=== PATIENT | male | born 1950 | race Caucasian/White ===

== ENCOUNTER 2021-02-06 09:48 | Inpatient (IN) | payer MEDICARE, BC ==
[2021-02-06] MEDS ORDERED: Albuterol/Ipratropium 3.0-0.5 MG/3 ML Neb Soln NEB PRN (09:57)
[2021-02-06] MEDS ORDERED: Dextrose 5%-0.9% NaCl 1,000 ML IV SCH (10:00)
--- NOTE | 2021-02-06 10:02 | EDM.PDOC ---
ED HPI GENERAL MEDICAL PROBLEM - General Chief Complaint: Respiratory Problem Stated Complaint: [facility] Time Seen by Provider: 02/06/21 09:56 Source of Information: Reports: Patient, EMS History Limitations: Reports: No Limitations - History of Present Illness INITIAL COMMENTS - FREE TEXT/NARRATIVE: 70-year-old male whom lives alone,presents to the ED with chief complaint of generalized weakness and inability to walk. Loss of appetite with inability to eat. Symptoms have progressively worsened over the last 4 months. Associated dyspnea even with trying to drink or eat. Patient has chronic COPD but is not oxygen dependent. No recent changes to any of his mask medications. States he has a cough worse the last 3 to 4 days but unable to expectorate any mucus. Feels lightheaded and dizzy upon standing or walking. Usually gets around his home with a scooter. He will occasionally use a walker. No recent falls or injuries. Has great concerns about falling due to his weakness. He has appreciate increased swelling of his left lower extremity for several days. He has not had a shower for several weeks( 4 months?), due to weakness and fear of falling in the shower. Denies headache nausea or vomiting. States his bowels are working okay. Urine is quite dark and concentrated. He denies any symptoms of COVID-19 illness. He has not had any COVID-19 vaccinations. He feels he has lost perhaps 6 to 8 pounds of weight in the last 3 months. Of note patient is tachycardic on the monitor at 147/min. Tachypneic at 24 to 28/min with O2 sats of 99% room air. Apparently family has been trying to arrange for home health care without success. Onset: Unknown/Unsure (Has not felt well for several weeks. Worse the last 3 to 4 days.) Duration: Chronic, Getting Worse Location: Reports: Generalized (Generalized weakness with inability to walk.), Other (Increased dyspnea on minimal activity or even eating and drinking makes him have increased dyspnea.) Quality: Reports: Other (Primary problem is dyspnea. Patient has primary COPD. Not oxygen dependent.) Severity: Severe (Letter to severe) Improves with: Reports: Rest Worsens with: Reports: Other (Any walking or movement makes him dyspneic. He gets dyspnea even with trying to eat and drink water.) Context: Reports: Other (Significant COPD.) Associated Symptoms: Reports: Cough, Loss of Appetite (For several months but worse the last 4 days.), Malaise (Cannot cough up any sputum.), Shortness of Breath, Weakness (Generalized weakness and dizziness.). 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 He has not been have been able to prove this for [employer] pension in this regard. Genitourinary History: Reports: BPH Musculoskeletal History: Reports: Arthritis (Neck low back knees.) Social & Family History - Living Situation & Occupation Living situation: Reports: Single Occupation: Retired Social History Comment: Apparently he lives alone with his son checking in on him interittently. ED ROS GENERAL - Review of Systems Review Of Systems: See Below Constitutional: Reports: Malaise, Weakness, Fatigue, Decreased Appetite (Markedly decreased appetite even for fluids.), Weight Loss (Approximately 6 pounds but the patient is unsure as he is not stepped on a scale for over 3 months.). Denies: Fever, Chills HEENT: Reports: Other (Treatment and blurred vision. Uses glasses for reading.) Respiratory: Reports: Shortness of Breath, Cough. Denies: Wheezing, Pleuritic Chest Pain, Sputum, Hemoptysis (Nonproductive.) Cardiovascular: Reports: Dyspnea on Exertion (Particular of his left lower extremity.), Edema, Lightheadedness. Denies: Chest Pain, Blood Pressure Problem, Claudication, Orthopnea, Palpitations Endocrine: Reports: Fatigue GI/Abdominal: Denies: Abdominal Pain (He reports bowel function is normal.) : Reports: Other (Nocturia x1. Patient feels his urine is very dark and seb in color.) Musculoskeletal: Reports: Other (Neurolysed weakness particularly lower extremities.) Skin: Reports: Other (Scaling left lower extremity.) Neurological: Reports: Dizziness (Especially with standing.), Difficulty Walking (At present does not feel he can walk.), Weakness, Gait Disturbance. Denies: Confusion, Syncope, Tingling, Change in Speech Psychiatric: Reports: No Symptoms Hematologic/Lymphatic: Reports: No Symptoms Immunologic: Reports: No Symptoms ED EXAM, GENERAL - Physical Exam Exam: See Below Exam Limited By: No Limitations General Appearance: Alert, WD/WN, No Apparent Distress, Other (Patient appears unkept. He has a dirt on his abdominal wall chest wall and severe scaling to left lower extremity. Signs that he has not had a shower for a lengthy period of time. Temperature was 36.3 degrees and he does not feel warm. Heart rate 99 and sinus. Respiratory 24 to 28/min with O2 s) Eye Exam: Bilateral Eye: Normal Inspection (No blepharal pallor or scleral icterus.), PERRL Ears: Other (Ceruminosis both ears. Dirt within the auditory ear canals bilaterally.) Throat/Mouth: Other (Tongue is very dry and coated.) Head: Atraumatic, Normocephalic Neck: Normal Inspection, Supple, Non-Tender, Full Range of Motion. No: Carotid Bruit, Lymphadenopathy (L), Lymphadenopathy (R) Respiratory/Chest: Lungs Clear, Normal Breath Sounds, Respiratory Distress (Tachypnea at rest with maintained O2 sats on room air), Decreased Breath Sounds (Mildly decreased breath sounds to posterior lung mathis by 10%.). No: Rales, Rhonchi, Wheezing Cardiovascular: Regular Rate, Rhythm, No Edema, No Gallop, No JVD, No Murmur, No Rub. No: Normal Peripheral Pulses Peripheral Pulses: 2+: Carotid (L), Carotid (R), Posterior Tibial (L), Posterior Tibial (R), Dorsalis Pedis (L) GI/Abdominal: Normal Bowel Sounds, Soft, Non-Tender, No Organomegaly, No Mass, Pelvis Stable, Other (No surgical scars) (Male) Exam: No Hernia Back Exam: Normal Inspection, Full Range of Motion. No: CVA Tenderness (L), CVA Tenderness (R) Extremities: Pedal Edema (Left lower extremity up to the knee i.e. 4+ pitting.), Other (Severe scaling of the skin left lower extremity.). No: Increased Warmth, Mottled, Pallor, Redness Neurological: Alert, Oriented, CN II-XII Intact, Normal Cognition, No Motor/Sensory Deficits. No: Normal Gait (Not assessed.), Disoriented, Slow to Respond, Unresponsive, Memory Loss Recent Events, Abnormal Gait Psychiatric: Normal Affect, Normal Mood Skin Exam: Warm, Dry, Intact, Other (Note scaling left lower extremity. Dirt on his skin abdominal wall chest wall and groins compliant with not being able to shower for a lengthy period of time) #1 Interpretation EKG Date: 02/06/21 Time: 10:03 Rhythm: Other (Sinus rhythm or sinus tachycardia at 147/min inverted T waves leads II.) Rate (Beats/Min): 147 [place]: RAD-Right [place] Deviation (113 degrees) P-Wave: Present (Inverted in lead II. Consider lead placement abnormality) QRS: Other (Decreased voltage limb and precordial leads. Atypical right bundle branch block pattern. Q waves leads V1 V2 combined with old anteroseptal myocardial infarction. Q waves also noted in leads I and aVL compared with old lateral wall myocardial infarction.) ST-T: Other (Nonspecific T wave flattening in leads I and aVL V5 and V6. Consider metabolic abnormality) QT: Prolonged (Mildly prolonged) EKG Interpretation Comments: Abnormal ECG #2 Interpretation EKG Date: 02/06/21 Time: 13:37 Rhythm: Other (Junctional tachycardia) Rate (Beats/Min): 145 [place]: RAD-Right [place] Deviation (110 degrees) P-Wave: Variable (P waves appreciated before the QRS complex on the QRS complex and after the QRS complexes compared with junctional rhythm) QRS: Other (Q-wave V1 V2 with initial poor R wave progression consider old anteroseptal myocardial infarction. Q waves 1 and aVL compared with old lateral wall myocardial infarction. Decreased voltage both limb and precordial leads. Atypical right bundle branch block pattern with widened QRS in V2.) ST-T: Other QT: Prolonged (Markedly prolonged due to tachycardia.) EKG Interpretation Comments: Abnormal ECG Course - Vital Signs Last Recorded V/S: Last Vital Signs Temp 36.3 C 02/06/21 09:57 Pulse 147 H 02/06/21 14:43 Resp 24 H 02/06/21 09:57 BP 108/77 02/06/21 14:43 Pulse Ox 96 02/06/21 09:57 - Orders/Labs/Meds Orders: Active Orders 24 hr Category Date Time Status Cardiac Monitoring [RC] CONTINUOUS Care 02/06/21 14:22 Active EKG Documentation Completion [RC] STAT Care 02/06/21 13:33 Active Height and Weight [RC] DAILY Care 02/06/21 14:22 Active Intake and Output [RC] QSHIFT Care 02/06/21 14:22 Active Notify Provider Vital Signs [RC] ASDIRECTED Care 02/06/21 14:22 Active Oxygen Therapy [RC] PRN Care 02/06/21 14:22 Active Pulse Oximetry [RC] CONTINUOUS Care 02/06/21 14:22 Active RT Aerosol Therapy [RC] ASDIRECTED Care 02/06/21 09:57 Active Up With Assistance [RC] ASDIRECTED Care 02/06/21 14:22 Active VTE/DVT Education [RC] PER UNIT ROUTINE Care 02/06/21 14:22 Active Vital Signs [RC] Q4H Care 02/06/21 14:22 Active Consult to Case Management/Veterinary Medicine Scientist [CONS] Cons 02/06/21 14:22 Active Routine OT Evaluation and Treatment [CONS] Routine Cons 02/06/21 14:22 Active PT Evaluation and Treatment [CONS] Routine Cons 02/06/21 14:22 Active Respiratory Care Assess and Treatment [CONS] Routine Cons 02/06/21 14:22 Active Heart Healthy Diet [DIET] Diet 02/06/21 Dinner Active Chest 1V Frontal [CR] Stat Exams 02/06/21 09:59 Taken Echo Comp wo Cont [US] Routine Exams 02/06/21 14:26 Ordered BASIC METABOLIC PANEL,BMP [CHEM] DAILY Lab 02/07/21 06:00 Ordered BASIC METABOLIC PANEL,BMP [CHEM] DAILY Lab 02/08/21 06:00 Ordered BASIC METABOLIC PANEL,BMP [CHEM] DAILY Lab 02/09/21 06:00 Ordered BASIC METABOLIC PANEL,BMP [CHEM] DAILY Lab 02/10/21 06:00 Ordered BASIC METABOLIC PANEL,BMP [CHEM] DAILY Lab 02/11/21 06:00 Ordered CBC WITH AUTO DIFF [HEME] DAILY Lab 02/07/21 06:00 Ordered CBC WITH AUTO DIFF [HEME] DAILY Lab 02/08/21 06:00 Ordered CBC WITH AUTO DIFF [HEME] DAILY Lab 02/09/21 06:00 Ordered CBC WITH AUTO DIFF [HEME] DAILY Lab 02/10/21 06:00 Ordered MAGNESIUM [CHEM] DAILY Lab 02/07/21 06:00 Ordered MAGNESIUM [CHEM] DAILY Lab 02/08/21 06:00 Ordered MAGNESIUM [CHEM] DAILY Lab 02/09/21 06:00 Ordered MAGNESIUM [CHEM] DAILY Lab 02/10/21 06:00 Ordered MAGNESIUM [CHEM] DAILY Lab 02/11/21 06:00 Ordered PROCALCITONIN [REF] Stat Lab 02/06/21 10:08 Received URINALYSIS W/MICROSCOPIC [UA W/MICROSCOPIC] [URIN] Stat Lab 02/06/21 14:50 Results Acetaminophen [TylenoL] Med 02/06/21 14:22 Active 650 mg PO Q4H PRN Dextrose 5%-0.9% NaCl [Dextrose 5%-Normal Saline] 1,000 Med 02/06/21 10:00 Active ml IV ASDIRECTED Heparin Sodium Med 02/06/21 14:30 Active 5,000 units SUBCUT Q8H Ondansetron [Zofran ODT] Med 02/06/21 14:22 Active 4 mg PO Q6H PRN Ondansetron [Zofran] Med 02/06/21 14:22 Active 4 mg IV Q4H PRN Sodium Chloride 0.9% [Normal Saline] 100 ml Med 02/06/21 12:30 Active IV ASDIRECTED Resuscitation Status Routine Resus Stat 02/06/21 14:22 Ordered Medication Orders Acetaminophen (Acetaminophen 325 Mg Tab) 650 mg PO Q4H PRN PRN Reason: Pain (Mild 1-3)/fever Heparin Sodium (Porcine) (Heparin Sodium 5,000 Units/Ml Vial) 5,000 units SUBCUT Q8H [facility] Dextrose/Sodium Chloride (Dextrose 5%-Normal Saline) 1,000 mls @ 999 mls/hr IV ASDIRECTED [facility] Last Admin: 02/06/21 10:39 Dose: 999 mls/hr Documented by: JOHN Sodium Chloride (Normal Saline) 100 mls @ 60 mls/hr IV ASDIRECTED [facility] Last Admin: 02/06/21 12:41 Dose: 60 mls/hr Documented by: TERI Albumin Human 12.5 gm/ Premix 50 mls @ 50 mls/hr IV ONETIME ONE Stop: 02/06/21 17:29 Albumin Human 12.5 gm/ Premix 50 mls @ 50 mls/hr IV ONETIME ONE Stop: 02/06/21 17:29 Ondansetron HCl (Ondansetron 4 Mg Tab.Dis) 4 mg PO Q6H PRN PRN Reason: nausea, able to take PO Ondansetron HCl (Ondansetron 4 Mg/2 Ml Sdv) 4 mg IV Q4H PRN PRN Reason: Nausea/Vomiting Labs: Laboratory Tests 02/06/21 02/06/21 02/06/21 Range/Units 10:08 10:08 10:08 WBC 5.45 (4.23-9.07) K/mm3 RBC 4.19 L (4.63-6.08) M/mm3 Hgb 12.1 L (13.7-17.5) gm/dl Hct 42.5 (40.1-51.0) % MCV 101.4 H (79.0-92.2) fl MCH 28.9 (25.7-32.2) pg MCHC 28.5 L (32.2-35.5) g/dl RDW Std Deviation 50.8 H (35.1-43.9) fL Plt Count 126 L (163-337) K/mm3 MPV 11.9 (9.4-12.3) fl Neut % (Auto) 75.2 H (34.0-67.9) % Lymph % (Auto) 13.2 L (21.8-53.1) % Clay % (Auto) 9.9 (5.3-12.2) % Eos % (Auto) 1.1 (0.8-7.0) Baso % (Auto) 0.6 (0.1-1.2) % Neut # (Auto) 4.10 (1.78-5.38) K/mm3 Lymph # (Auto) 0.72 L (1.32-3.57) K/mm3 Clay # (Auto) 0.54 (0.30-0.82) K/mm3 Eos # (Auto) 0.06 (0.04-0.54) K/mm3 Baso # (Auto) 0.03 (0.01-0.08) K/mm3 Manual Slide Review Abnormal smear ESR (0-15) mm/hr PT 13.6 H (9.7-12.0) SECONDS INR 1.28 APTT (21.7-31.4) SECONDS D-Dimer, Quantitative (0.19-0.50) mg/L Sodium 143 (136-145) mEq/L Potassium 4.4 (3.5-5.1) mEq/L Chloride 103 (98-107) mEq/L Carbon Dioxide 37 H (21-32) mEq/L Anion Gap 7.4 (5-15) BUN 16 (7-18) mg/dL Creatinine 1.1 (0.7-1.3) mg/dL Est Cr Clr Drug Dosing TNP Estimated GFR (MDRD) > 60 (>60) mL/min BUN/Creatinine Ratio 14.5 (14-18) Glucose 120 H (70-99) mg/dL Calcium 7.9 L (8.5-10.1) mg/dL Magnesium 2.0 (1.8-2.4) mg/dL Total Bilirubin 0.7 (0.2-1.0) mg/dL AST 20 (15-37) U/L ALT 20 (16-63) U/L Alkaline Phosphatase 75 (46-116) U/L CK-MB (CK-2) (0-3.6) ng/ml Troponin I 0.349 H* (0.00-0.056) ng/mL C-Reactive Protein 1.7 H* (<1.0) mg/dL NT-Pro-B Natriuret Pep (0-125) pg/mL Total Protein 6.4 (6.4-8.2) g/dl Albumin 2.8 L (3.4-5.0) g/dl Globulin 3.6 gm/dL Albumin/Globulin Ratio 0.8 L (1-2) SARS-CoV-2 RNA (ANGELA) (NEGATIVE) 02/06/21 02/06/21 02/06/21 Range/Units 10:08 10:08 10:08 WBC (4.23-9.07) K/mm3 RBC (4.63-6.08) M/mm3 Hgb (13.7-17.5) gm/dl Hct (40.1-51.0) % MCV (79.0-92.2) fl MCH (25.7-32.2) pg MCHC (32.2-35.5) g/dl RDW Std Deviation (35.1-43.9) fL Plt Count (163-337) K/mm3 MPV (9.4-12.3) fl Neut % (Auto) (34.0-67.9) % Lymph % (Auto) (21.8-53.1) % Clay % (Auto) (5.3-12.2) % Eos % (Auto) (0.8-7.0) Baso % (Auto) (0.1-1.2) % Neut # (Auto) (1.78-5.38) K/mm3 Lymph # (Auto) (1.32-3.57) K/mm3 Clay # (Auto) (0.30-0.82) K/mm3 Eos # (Auto) (0.04-0.54) K/mm3 Baso # (Auto) (0.01-0.08) K/mm3 Manual Slide Review ESR 6 (0-15) mm/hr PT (9.7-12.0) SECONDS INR APTT 26.2 (21.7-31.4) SECONDS D-Dimer, Quantitative 8.27 H (0.19-0.50) mg/L Sodium (136-145) mEq/L Potassium (3.5-5.1) mEq/L Chloride (98-107) mEq/L Carbon Dioxide (21-32) mEq/L Anion Gap (5-15) BUN (7-18) mg/dL Creatinine (0.7-1.3) mg/dL Est Cr Clr Drug Dosing Estimated GFR (MDRD) (>60) mL/min BUN/Creatinine Ratio (14-18) Glucose (70-99) mg/dL Calcium (8.5-10.1) mg/dL Magnesium (1.8-2.4) mg/dL Total Bilirubin (0.2-1.0) mg/dL AST (15-37) U/L ALT (16-63) U/L Alkaline Phosphatase (46-116) U/L CK-MB (CK-2) (0-3.6) ng/ml Troponin I (0.00-0.056) ng/mL C-Reactive Protein (<1.0) mg/dL NT-Pro-B Natriuret Pep 8000 H (0-125) pg/mL Total Protein (6.4-8.2) g/dl Albumin (3.4-5.0) g/dl Globulin gm/dL Albumin/Globulin Ratio (1-2) SARS-CoV-2 RNA (ANGELA) (NEGATIVE) 02/06/21 02/06/21 Range/Units 10:08 10:09 WBC (4.23-9.07) K/mm3 RBC (4.63-6.08) M/mm3 Hgb (13.7-17.5) gm/dl Hct (40.1-51.0) % MCV (79.0-92.2) fl MCH (25.7-32.2) pg MCHC (32.2-35.5) g/dl RDW Std Deviation (35.1-43.9) fL Plt Count (163-337) K/mm3 MPV (9.4-12.3) fl Neut % (Auto) (34.0-67.9) % Lymph % (Auto) (21.8-53.1) % Clay % (Auto) (5.3-12.2) % Eos % (Auto) (0.8-7.0) Baso % (Auto) (0.1-1.2) % Neut # (Auto) (1.78-5.38) K/mm3 Lymph # (Auto) (1.32-3.57) K/mm3 Clay # (Auto) (0.30-0.82) K/mm3 Eos # (Auto) (0.04-0.54) K/mm3 Baso # (Auto) (0.01-0.08) K/mm3 Manual Slide Review ESR (0-15) mm/hr PT (9.7-12.0) SECONDS INR APTT (21.7-31.4) SECONDS D-Dimer, Quantitative (0.19-0.50) mg/L Sodium (136-145) mEq/L Potassium (3.5-5.1) mEq/L Chloride (98-107) mEq/L Carbon Dioxide (21-32) mEq/L Anion Gap (5-15) BUN (7-18) mg/dL Creatinine (0.7-1.3) mg/dL Est Cr Clr Drug Dosing Estimated GFR (MDRD) (>60) mL/min BUN/Creatinine Ratio (14-18) Glucose (70-99) mg/dL Calcium (8.5-10.1) mg/dL Magnesium (1.8-2.4) mg/dL Total Bilirubin (0.2-1.0) mg/dL AST (15-37) U/L ALT (16-63) U/L Alkaline Phosphatase (46-116) U/L CK-MB (CK-2) 2.4 (0-3.6) ng/ml Troponin I (0.00-0.056) ng/mL C-Reactive Protein (<1.0) mg/dL NT-Pro-B Natriuret Pep (0-125) pg/mL Total Protein (6.4-8.2) g/dl Albumin (3.4-5.0) g/dl Globulin gm/dL Albumin/Globulin Ratio (1-2) SARS-CoV-2 RNA (ANGELA) Negative (NEGATIVE) Meds: Medications Generic Name Dose Route Start Last Admin Trade Name Freq PRN Reason Stop Dose Admin Acetaminophen 650 mg 02/06/21 14:22 Acetaminophen 325 Mg Tab PO Q4H PRN Pain (Mild 1-3)/fever Heparin Sodium (Porcine) 5,000 units 02/06/21 14:30 Heparin Sodium 5,000 Units/Ml Vial SUBCUT Q8H TOMY Dextrose/Sodium Chloride 1,000 mls @ 999 mls/hr 02/06/21 10:00 02/06/21 10:39 Dextrose 5%-Normal Saline IV 999 mls/hr ASDIRECTED TOMY Administration Sodium Chloride 100 mls @ 60 mls/hr 02/06/21 12:30 02/06/21 12:41 Normal Saline IV 60 mls/hr ASDIRECTED TOMY Administration Albumin Human 12.5 gm/ Premix 50 mls @ 50 mls/hr 02/06/21 16:30 IV 02/06/21 17:29 ONETIME ONE Albumin Human 12.5 gm/ Premix 50 mls @ 50 mls/hr 02/06/21 16:30 IV 02/06/21 17:29 ONETIME ONE Ondansetron HCl 4 mg 02/06/21 14:22 Ondansetron 4 Mg Tab.Dis PO Q6H PRN nausea, able to take PO Ondansetron HCl 4 mg 02/06/21 14:22 Ondansetron 4 Mg/2 Ml Sdv IV Q4H PRN Nausea/Vomiting Discontinued Medications Generic Name Dose Route Start Last Admin Trade Name Freq PRN Reason Stop Dose Admin Albuterol/Ipratropium 3 ml 02/06/21 09:57 Albuterol/Ipratropium 3.0-0.5 Mg/3 Ml Neb Soln NEB Q4H PRN Shortness Of Breath/wheezing Diltiazem HCl 10 mg 02/06/21 13:35 02/06/21 13:54 Diltiazem 50 Mg/10 Ml Sdv IVPUSH 02/06/21 13:36 10 mg ONETIME ONE Administration Furosemide 40 mg 02/06/21 13:34 02/06/21 13:54 Furosemide 40 Mg/4 Ml Vial IVPUSH 02/06/21 13:35 40 mg NOW ONE Administration Albumin Human 12.5 gm/ Premix 50 mls @ 50 mls/hr 02/06/21 15:20 IV 02/06/21 16:19 Q1H ONE Iopamidol 100 ml 02/06/21 12:24 02/06/21 12:41 Iopamidol 755 Mg/Ml 100 Ml Bottle IVPUSH 02/06/21 12:25 100 ml ONETIME ONE Administration Levalbuterol HCl 1.25 mg 02/06/21 10:15 02/06/21 10:25 Levalbuterol Hcl 1.25 Mg/0.5 Ml Neb NEB 02/06/21 10:16 Not Given ONETIME ONE Levalbuterol HCl Confirm 02/06/21 10:17 02/06/21 10:24 Levalbuterol Hcl 1.25 Mg/3 Ml Neb Administered 02/06/21 10:18 1.25 mg Dose Administration 1.25 mg .ROUTE .STK-MED ONE Metoprolol Tartrate 5 mg 02/06/21 14:34 02/06/21 14:43 Metoprolol Tartrate 5 Mg/5 Ml Sdv IVPUSH 02/06/21 14:35 5 mg ONETIME ONE Administration Sodium Chloride 10 ml 02/06/21 12:24 02/06/21 12:41 Sodium Chloride 0.9% 10 Ml Syringe FLUSH 02/06/21 12:25 10 ml ONETIME ONE Administration - Radiology Interpretation Free Text/Narrative:: 70-year-old male presents to the ED with generalized weakness and decreased appetite inability to eat. History of COPD. Unclear what his home medications are. He presents with a history of not being able to shower for 4 months. Unable to care for himself. Lives alone. He has not oxygen dependent but carries a history of COPD. Apparently he does have a home nebulizer. No history of diabetes. Estimated 6 pound weight loss over the last 3 months but he does not have a scale to really assess his weight loss. Examination reveals him to be unkept with dirt in his skin abdomen and chest wall. Diffuse edema left lower extremity with scaling of the skin I think due to the edema. The right leg is not edematous raising concern for possible DVT in the lower lower extremity. He is tachycardic with a regular rhythm and I suspect sinus on the monitor and on his ECG with decreased voltage throughout the limb and precordial leads. IV will be D5NS. Routine labs including D-dimer assay. - Re-Assessments/Exams Free Text/Narrative Re-Assessment/Exam: 02/06/21 12:09 ECG does appear to reveal a sinus tachycardia versus possible ectopic atrial rhythm. Chest x-ray done portably reveals hyperinflated lung mathis with borderline cardiomegaly. There is an infiltrate right lower lobe compatible with pneumonia. There is a associated right-sided pleural effusion. With his history of significant weight loss and weakness concern for possible malignancy right lower lobe exist. Mediastinum appears normal. CT scan of the chest will be performed with IV contrast if his renal function is normal. 02/06/21 12:14 White count is normal at 5.45 with automated neutrophil count of 75.2%. Hemoglobin is slightly low at 12.1 with hematocrit of 42.5. MCV is elevated at 101.4. Platelet count is low at 126,000. Sed rate was 6. PT is 13.6 mildly elevated INR is elevated at 1.28. PTT is 26.2. D-dimer is markedly elevated at 8.27. Sodium 143 with a potassium of 4.4. Chloride 103 with a bicarb of 37 revealing the patient is retaining CO2. Anion gap is 7.4. BUN was 16 with a creatinine of 1.1 and a GFR greater than 60. Glucose is 120 calcium is 7.9 low compared with not eating. Magnesium was 2.0. Liver function is normal. Troponin I is elevated at 0.349 C-reactive protein elevated at 1.7 BNP is elevated at 8000. Total protein is 6.4 with an albumin fraction of 2.8. COVID-19 screen is negative. Patient will have a CT pulmonary angiogram performed to rule out PE. I will also confirm that this is a pneumonia infiltrate right lower lobe with associated pleural effusion due to heart failure. An ultrasound of his left lower extremity will also be ordered to rule out DVT. 02/06/21 13:19 Doppler ultrasound of the left lower extremity proved to be normal with no signs of DVT. CT examination of the chest has been completed. IV contrast was utilized. Pulmonary arteries are well-opacified no filling defects are seen to indicate pulmonary embolism. Thoracic aorta shows no aneurysm. Minimal atherosclerotic calcification is noted. No adenopathy is seen within the mediastinum or hilar regions. No pericardial thickening is seen. Heart is slightly enlarged. Visualized upper abdomen shows motion artifact without discrete abnormality. Lung window settings were reviewed which show diffuse and severe emphysematous changes. Small right-sided pleural effusion is seen. Minimal left-sided pleural effusion is also noted. There is areas of atelectasis adjacent to the pleural effusions. Bone window settings were reviewed which show mild scattered degenerative changes throughout the s pine. No acute osseous abnormalities appreciated. Of note no mention of infiltrate appreciated on chest x-ray in the right lower lobe. On my review of the CT he has a moderate right-sided pleural effusion. There is evidence of fluid surrounding vasculature right lower lobe which I think accounts for the infiltrate appreciated on chest x-ray. No mediastinal adenopathy appreciated. 02/06/21 13:35 Patient`s son is here now. He was able to answer some questions. Patient has a chronic low blood pressure usually 98 to 110 systolic. He has no history of heart arrhythmia. He remains in a regular rhythm at 145 bpm. No improvement with 1 L fluid challenge. O2 sats remain 100% on 2 L/min. I suspect he has underlying atrial fibrillation but unable to prove this at this time. I am going to try is 10 mg dose of diltiazem to see if it changes his heart rate or slows it enough to confirm that he is actually in atrial fibrillation versus SVT. He will receive Lasix 40 mg IV for congestive heart failure. He will require admission to the hospital. 02/06/21 14:07 Unable to clarify at this time whether the patient has had an [facility] or not. He denies any significant chest pain in the last week or so. His troponin came back elevated at 0.349. Repeat ECG does reveal evidence of a junctional tachycardia in the 145 range. Attempt to slow the rhythm with diltiazem 10 mg IV but with a drop in his blood pressure to 90/68 systolic. He states this is his normal. However he did nothing to control his heart rate. We will allow blood pressure recover and try low-dose beta-nena. I have discussed the case with on-call hospitalist and the patient tentatively will be admitted to the ICU. I have ordered a CK-MB fraction to see if there is any recent evidence of myocardial infarction. 02/06/21 14:34 Patient's blood pressure has returned back to 111/86. We will try him on Lopressor 5 mg IV for junctional tachycardia at 147/min at this time. Patient is going to require healthcare social worker consultation due to inability to care for himself as of late. [facility] but has not had any [facility]. He was hoping to obtain some home health. It appears that he may well need more than this at this time since he is not reportedly had a shower for 4 months? 02/06/21 15:26: Heart rate remains elevated at 141. Dropped only about 6 bpm with Lopressor 5 mg IV slowly over 5 minutes. Blood pressure did drop transiently down to 90/80. It is currently 95/80. Patient be transferred to the ICU at this time. CK-MB fraction is normal at 1.7. Repeat troponin remains the same at 0.349. Patient has voided large quantities of urine x3 and is feeling somewhat better in terms of breathing. Departure - Departure Time of Disposition: 15:38 Disposition: Admitted As Inpatient 64 Condition: Fair Clinical Impression: Adult failure to thrive, Hypoxia, Elevated troponin I measurement, Junctional tachycardia COPD (chronic obstructive pulmonary disease) Qualifiers: COPD type: emphysema Emphysema type: panlobular Qualified Code(s): J43.1 - Panlobular emphysema Congestive heart failure Qualifiers: Heart failure type: unspecified Heart failure chronicity: unspecified Qualified Code(s): I50.9 - Heart failure, unspecified - Discharge Information *PRESCRIPTION DRUG MONITORING PROGRAM REVIEWED*: Not Applicable *COPY OF PRESCRIPTION DRUG MONITORING REPORT IN PATIENT PIERO: Not Applicable Sepsis Event Note (ED) - Focused Exam Vital Signs: Vital Signs Temp Pulse Pulse Resp BP Pulse Ox Pulse Ox 02/06/21 09:57 36.3 C 148 H 99 24 H 107/86 99 96 - My Orders Last 24 Hours: My Active Orders 02/06/21 09:57 RT Aerosol Therapy [RC] ASDIRECTED 02/06/21 09:59 Chest 1V Frontal [CR] Stat 02/06/21 10:00 Dextrose 5%-0.9% NaCl [Dextrose 5%-Normal Saline] 1,000 ml IV ASDIRECTED 02/06/21 12:30 Sodium Chloride 0.9% [Normal Saline] 100 ml IV ASDIRECTED 02/06/21 13:33 EKG Documentation Completion [RC] STAT 02/06/21 14:50 URINALYSIS W/MICROSCOPIC [UA W/MICROSCOPIC] [URIN] Stat - Assessment/Plan Last 24 Hours: My Active Orders 02/06/21 09:57 RT Aerosol Therapy [RC] ASDIRECTED 02/06/21 09:59 Chest 1V Frontal [CR] Stat 02/06/21 10:00 Dextrose 5%-0.9% NaCl [Dextrose 5%-Normal Saline] 1,000 ml IV ASDIRECTED 02/06/21 12:30 Sodium Chloride 0.9% [Normal Saline] 100 ml IV ASDIRECTED 02/06/21 13:33 EKG Documentation Completion [RC] STAT 02/06/21 14:50 URINALYSIS W/MICROSCOPIC [UA W/MICROSCOPIC] [URIN] Stat
[2021-02-06] MEDS ORDERED: Levalbuterol HCl 1.25 MG/0.5 ML Neb NEB ONE (10:15)
[2021-02-06] MEDS ORDERED: Levalbuterol HCl 1.25 MG/3 ML Neb ONE (10:17)
[2021-02-06] MEDS ORDERED: Iopamidol 755 Mg/ML 100 ML Bottle IVPUSH ONE (12:24)
[2021-02-06] MEDS ORDERED: Sodium Chloride 0.9% 10 ML Syringe FLUSH ONE (12:24)
[2021-02-06] MEDS ORDERED: Sodium Chloride 0.9% 100 ML IV SCH (12:30)
--- NOTE | 2021-02-06 12:59 | CT ---
CT chest Technique: Multiple axial sections through the chest were obtained. Intravenous contrast was utilized. Study has been performed as a pulmonary angiogram protocol. Comparison: No prior CT chest or chest x-ray is available. Findings: Pulmonary arteries are well opacified. No filling defects are seen to indicate pulmonary embolism. Thoracic aorta shows no aneurysm. Minimal atherosclerotic calcification is noted. No adenopathy is seen within the mediastinum or hilar regions. No pericardial thickening is seen. Heart is slightly enlarged. Visualized upper abdomen shows motion artifact without discrete abnormality. Lung window settings were reviewed which show diffuse and severe emphysematous change. Small right-sided pleural effusion is seen. Minimal left-sided pleural effusion is noted. There is areas of atelectasis adjacent to the pleural effusions. Bone window settings were reviewed which show mild scattered degenerative change throughout the spine. No acute osseous abnormality is appreciated. Impression: 1. Heart is enlarged. Small pleural effusions are noted with adjacent atelectasis. Please correlate if patient has any symptoms to suggest CHF. 2. No findings of pulmonary embolism. 3. Severe emphysematous changes are seen within both sides of the chest. Diagnostic code #3
--- NOTE | 2021-02-06 13:11 | US ---
Left lower extremity deep venous ultrasound: Duplex and color Doppler evaluation was obtained of the left common femoral, proximal greater saphenous, superficial femoral, popliteal, posterior tibial and peroneal veins. Right common femoral vein was also evaluated. Comparison: No prior venous imaging is available. Findings: Normal phasic flow, augmentation and compression are seen. Impression: 1. No findings of deep venous thrombosis within the left lower extremity or within the right common femoral vein. Diagnostic code #1
[2021-02-06] MEDS ORDERED: Furosemide 40 MG/4 ML VIAL IVPUSH ONE (13:34)
[2021-02-06] MEDS ORDERED: Diltiazem 50 MG/10 ML SDV IVPUSH ONE (13:35)
[2021-02-06] MEDS ORDERED: Ondansetron 4 MG Tab.DIS PO PRN (14:22)
[2021-02-06] MEDS ORDERED: Ondansetron 4 MG/2 ML SDV IV PRN (14:22)
[2021-02-06] MEDS ORDERED: Acetaminophen 325 MG Tab PO PRN (14:22)
[2021-02-06] MEDS ORDERED: Metoprolol Tartrate 5 MG/5 ML SDV IVPUSH ONE (14:34)
[2021-02-06] MEDS ORDERED: Albumin 25% 12.5 GM in Premix Bag 1 BAG IV ONE ×5 (15:20→16:30)
[2021-02-06] MEDS ORDERED: Benzonatate 100 MG Cap PO PRN (16:10)
[2021-02-06] MEDS: Metoprolol Tartrate 5 MG/5 ML SDV IVPUSH PRN ×2 (16:13→21:37)
[2021-02-06] MEDS ORDERED: Levalbuterol HCl 0.63 MG/3 ML Neb ONE (16:14)
[2021-02-06] MEDS ORDERED: Furosemide 100 MG in Sodium Chloride 0.9% 90 ML IV SCH ×2 (16:15→16:45)
[2021-02-06] MEDS: Aspirin 325 MG Tab.EC PO SCH (16:24)
[2021-02-06] MEDS: Heparin Sodium 5,000 Units/ML Vial SUBCUT SCH ×2 (16:24→21:34)
[2021-02-06] MEDS: Levalbuterol HCl 0.63 MG/3 ML Neb NEB PRN ×2 (16:26→20:06)
[2021-02-06] MEDS ORDERED: predniSONE 20 MG Tab PO ONE (16:29)
[2021-02-06] MEDS ORDERED: Metoprolol Tartrate 25 MG Tab PO ONE ×3 (16:30→22:42)
[2021-02-06] MEDS ORDERED: Tiotropium Bromide 4 GM Inhalation Spray (2.5mcg/1 dose; 10 doses) INH SCH ×2 (16:30→20:00)
--- NOTE | 2021-02-06 17:01 | PCM.HP.2 ---
H&P History of Present Illness - General Date of Service: 02/06/21 Admit Problem/Dx: Admission Diagnosis/Problem Admission Diagnosis/Problem CHF, Congestive heart failure Source of Information: Patient - History of Present Illness Initial Comments - Free Text/Narative: This is a 70M with PMhx of oxygen dependent COPD (3.5 liters baseline) presenting for SOB and fatigue. The patient states he has not showered since september due to generalized weakness. He has family deliver meals and uses a scooter to navigate around his home. He states he cant take care of himself. He has had worsening lower extremity edema, orthopnea, and chronic cough that is worsening. He is active tobacco user. He denies chest pain, palpitations, fever, abdominal pain. In the ED the patient was noted to have HR in 140s. Troponin was 0.34. he had elevated BNP 8000. EKG showed junctional tachycardia. CT PE negative for PE, small pleural effusions, Cardiomegaly, +emphesematous changes. He was given IVF, lasix, duoneb, diltiazem and admitted for further evaluation. - Related Data Allergies/Adverse Reactions: Allergies Allergy/AdvReac Type Severity Reaction Status Date / Time No Known Allergies Allergy Verified 02/06/21 17:17 Past Medical History HEENT History: Reports: Impaired Vision Other HEENT History: glasses Cardiovascular History: Reports: Hypertension Other Cardiovascular History: Last EKG was "10 yrs ago per pt" Respiratory History: Reports: COPD Other Respiratory History: Patient was exposed to agent orange in [place]. He has not been have been able to prove this for [employer] pension in this regard. Gastrointestinal History: Reports: None Other Gastrointestinal History: Last BM yesterdy, normal form Genitourinary History: Reports: BPH Musculoskeletal History: Reports: Arthritis (Neck low back knees.) Psychiatric History: Reports: None Other Endocrine/Metabolic History: Nodule growing on Thyroid per pt. It was removed. - Infectious Disease History Infectious Disease History: Reports: Shingles Other Infectious Disease History: Shingles vax 2019 - Past Surgical History Head Surgeries/Procedures: Reports: None Other HEENT Surgeries/Procedures: thyroid surgery approx 1996 Cardiovascular Surgical History: Reports: None Respiratory Surgical History: Reports: None GI Surgical History: Reports: None Male Surgical History: Reports: None Endocrine Surgical History: Reports: Thyroidectomy Other Endocrine Surgeries/Procedures: partial thyoidectomy Dermatological Surgical History: Reports: None Social & Family History - Family History Neurological: Reports: None Psychiatric: Reports: Other (See Below) Other Psychiatric Family History: sister suicided Endocrine/Metabolic: Reports: Hypothyroidism Other Endocrine/Metabolic Family History: brother and sister Oncologic: Reports: Breast Other Oncologic Family History: 3 sisters - Tobacco Use Tobacco Use Status *Q: Former Tobacco User Years of Tobacco use: 60 Packs/Tins Daily: 1 Used Tobacco, but Quit: Yes Month/Year Tobacco Last Used: 30 days ago - Caffeine Use Caffeine Use: Reports: None Caffeine Use Comment: stopped caffene approx 1 year ago - Alcohol Use Days Per Week of Alcohol Use: 1 Number of Drinks Per Day: 0 Total Drinks Per Week: 0 - Recreational Drug Use Recreational Drug Use: No - Living Situation & Occupation Living situation: Reports: Single Occupation: Retired H&P Review of Systems - Review of Systems: Review Of Systems: Comprehensive ROS is negative, except as noted in HPI. Exam - Exam Exam: See Below - Vital Signs Vital Signs: Last Vital Signs Temp 97.1 F 02/06/21 16:56 Pulse 138 H 02/06/21 16:49 Resp 19 02/06/21 16:49 BP 98/78 02/06/21 16:49 Pulse Ox 95 02/06/21 16:56 - Exam Physical Exam Comments:: GeN: chronically appearing ill male; disheveled HEENT: NCAT EOMI MMM Neck: supple CV: Tachycardic; normal s1 s2 Lungs: Coarse breath sounds; crackles at base Abd: Soft, nt, nd Neuro: AOX3, CN grossly intact Psyche: appropriate affect MSK: age appropriate muscle mass Skin: warm, dry; no rash on face Ext: 2+ lower extremity edema - Patient Data Lab Results Last 24 hrs: Laboratory Results - last 24 hr 02/06/21 02/06/21 02/06/21 Range/Units 10:08 10:08 10:08 WBC 5.45 (4.23-9.07) K/mm3 RBC 4.19 L (4.63-6.08) M/mm3 Hgb 12.1 L (13.7-17.5) gm/dl Hct 42.5 (40.1-51.0) % MCV 101.4 H (79.0-92.2) fl MCH 28.9 (25.7-32.2) pg MCHC 28.5 L (32.2-35.5) g/dl RDW Std Deviation 50.8 H (35.1-43.9) fL Plt Count 126 L (163-337) K/mm3 MPV 11.9 (9.4-12.3) fl Neut % (Auto) 75.2 H (34.0-67.9) % Lymph % (Auto) 13.2 L (21.8-53.1) % [place] % (Auto) 9.9 (5.3-12.2) % Eos % (Auto) 1.1 (0.8-7.0) Baso % (Auto) 0.6 (0.1-1.2) % Neut # (Auto) 4.10 (1.78-5.38) K/mm3 Lymph # (Auto) 0.72 L (1.32-3.57) K/mm3 [place] # (Auto) 0.54 (0.30-0.82) K/mm3 Eos # (Auto) 0.06 (0.04-0.54) K/mm3 Baso # (Auto) 0.03 (0.01-0.08) K/mm3 Manual Slide Review Abnormal smear ESR (0-15) mm/hr PT 13.6 H (9.7-12.0) SECONDS INR 1.28 APTT (21.7-31.4) SECONDS D-Dimer, Quantitative (0.19-0.50) mg/L Sodium 143 (136-145) mEq/L Potassium 4.4 (3.5-5.1) mEq/L Chloride 103 (98-107) mEq/L Carbon Dioxide 37 H (21-32) mEq/L Anion Gap 7.4 (5-15) BUN 16 (7-18) mg/dL Creatinine 1.1 (0.7-1.3) mg/dL Est Cr Clr Drug Dosing TNP Estimated GFR (MDRD) > 60 (>60) mL/min BUN/Creatinine Ratio 14.5 (14-18) Glucose 120 H (70-99) mg/dL Lactic Acid (0.4-2.0) mmol/L Calcium 7.9 L (8.5-10.1) mg/dL Magnesium 2.0 (1.8-2.4) mg/dL Total Bilirubin 0.7 (0.2-1.0) mg/dL AST 20 (15-37) U/L ALT 20 (16-63) U/L Alkaline Phosphatase 75 (46-116) U/L CK-MB (CK-2) (0-3.6) ng/ml Troponin I 0.349 H* (0.00-0.056) ng/mL C-Reactive Protein 1.7 H* (<1.0) mg/dL NT-Pro-B Natriuret Pep (0-125) pg/mL Total Protein 6.4 (6.4-8.2) g/dl Albumin 2.8 L (3.4-5.0) g/dl Globulin 3.6 gm/dL Albumin/Globulin Ratio 0.8 L (1-2) Urine Color (Yellow) Urine Appearance (Clear) Urine pH (5.0-8.0) Ur Specific [place] (1.005-1.030) Urine Protein (Negative) Urine Glucose (UA) (Negative) Urine Ketones (Negative) Urine Occult Blood (Negative) Urine Nitrite (Negative) Urine Bilirubin (Negative) Urine Urobilinogen (0.2-1.0) Ur Leukocyte Esterase (Negative) Urine RBC (0-5) /hpf Urine WBC (0-5) /hpf Ur Epithelial Cells (0-5) /hpf Urine Bacteria (FEW) /hpf Urine Mucus (FEW) /hpf SARS-CoV-2 RNA (ANGELA) (NEGATIVE) 02/06/21 02/06/21 02/06/21 Range/Units 10:08 10:08 10:08 WBC (4.23-9.07) K/mm3 RBC (4.63-6.08) M/mm3 Hgb (13.7-17.5) gm/dl Hct (40.1-51.0) % MCV (79.0-92.2) fl MCH (25.7-32.2) pg MCHC (32.2-35.5) g/dl RDW Std Deviation (35.1-43.9) fL Plt Count (163-337) K/mm3 MPV (9.4-12.3) fl Neut % (Auto) (34.0-67.9) % Lymph % (Auto) (21.8-53.1) % [place] % (Auto) (5.3-12.2) % Eos % (Auto) (0.8-7.0) Baso % (Auto) (0.1-1.2) % Neut # (Auto) (1.78-5.38) K/mm3 Lymph # (Auto) (1.32-3.57) K/mm3 [place] # (Auto) (0.30-0.82) K/mm3 Eos # (Auto) (0.04-0.54) K/mm3 Baso # (Auto) (0.01-0.08) K/mm3 Manual Slide Review ESR 6 (0-15) mm/hr PT (9.7-12.0) SECONDS INR APTT 26.2 (21.7-31.4) SECONDS D-Dimer, Quantitative 8.27 H (0.19-0.50) mg/L Sodium (136-145) mEq/L Potassium (3.5-5.1) mEq/L Chloride (98-107) mEq/L Carbon Dioxide (21-32) mEq/L Anion Gap (5-15) BUN (7-18) mg/dL Creatinine (0.7-1.3) mg/dL Est Cr Clr Drug Dosing Estimated GFR (MDRD) (>60) mL/min BUN/Creatinine Ratio (14-18) Glucose (70-99) mg/dL Lactic Acid (0.4-2.0) mmol/L Calcium (8.5-10.1) mg/dL Magnesium (1.8-2.4) mg/dL Total Bilirubin (0.2-1.0) mg/dL AST (15-37) U/L ALT (16-63) U/L Alkaline Phosphatase (46-116) U/L CK-MB (CK-2) (0-3.6) ng/ml Troponin I (0.00-0.056) ng/mL C-Reactive Protein (<1.0) mg/dL NT-Pro-B Natriuret Pep 8000 H (0-125) pg/mL Total Protein (6.4-8.2) g/dl Albumin (3.4-5.0) g/dl Globulin gm/dL Albumin/Globulin Ratio (1-2) Urine Color (Yellow) Urine Appearance (Clear) Urine pH (5.0-8.0) Ur Specific [place] (1.005-1.030) Urine Protein (Negative) Urine Glucose (UA) (Negative) Urine Ketones (Negative) Urine Occult Blood (Negative) Urine Nitrite (Negative) Urine Bilirubin (Negative) Urine Urobilinogen (0.2-1.0) Ur Leukocyte Esterase (Negative) Urine RBC (0-5) /hpf Urine WBC (0-5) /hpf Ur Epithelial Cells (0-5) /hpf Urine Bacteria (FEW) /hpf Urine Mucus (FEW) /hpf SARS-CoV-2 RNA (ANGELA) (NEGATIVE) 02/06/21 02/06/21 02/06/21 Range/Units 10:08 10:09 14:50 WBC (4.23-9.07) K/mm3 RBC (4.63-6.08) M/mm3 Hgb (13.7-17.5) gm/dl Hct (40.1-51.0) % MCV (79.0-92.2) fl MCH (25.7-32.2) pg MCHC (32.2-35.5) g/dl RDW Std Deviation (35.1-43.9) fL Plt Count (163-337) K/mm3 MPV (9.4-12.3) fl Neut % (Auto) (34.0-67.9) % Lymph % (Auto) (21.8-53.1) % [place] % (Auto) (5.3-12.2) % Eos % (Auto) (0.8-7.0) Baso % (Auto) (0.1-1.2) % Neut # (Auto) (1.78-5.38) K/mm3 Lymph # (Auto) (1.32-3.57) K/mm3 [place] # (Auto) (0.30-0.82) K/mm3 Eos # (Auto) (0.04-0.54) K/mm3 Baso # (Auto) (0.01-0.08) K/mm3 Manual Slide Review ESR (0-15) mm/hr PT (9.7-12.0) SECONDS INR APTT (21.7-31.4) SECONDS D-Dimer, Quantitative (0.19-0.50) mg/L Sodium (136-145) mEq/L Potassium (3.5-5.1) mEq/L Chloride (98-107) mEq/L Carbon Dioxide (21-32) mEq/L Anion Gap (5-15) BUN (7-18) mg/dL Creatinine (0.7-1.3) mg/dL Est Cr Clr Drug Dosing Estimated GFR (MDRD) (>60) mL/min BUN/Creatinine Ratio (14-18) Glucose (70-99) mg/dL Lactic Acid (0.4-2.0) mmol/L Calcium (8.5-10.1) mg/dL Magnesium (1.8-2.4) mg/dL Total Bilirubin (0.2-1.0) mg/dL AST (15-37) U/L ALT (16-63) U/L Alkaline Phosphatase (46-116) U/L CK-MB (CK-2) 2.4 (0-3.6) ng/ml Troponin I (0.00-0.056) ng/mL C-Reactive Protein (<1.0) mg/dL NT-Pro-B Natriuret Pep (0-125) pg/mL Total Protein (6.4-8.2) g/dl Albumin (3.4-5.0) g/dl Globulin gm/dL Albumin/Globulin Ratio (1-2) Urine Color Yellow (Yellow) Urine Appearance Clear (Clear) Urine pH 7.0 (5.0-8.0) Ur Specific [place] 1.020 (1.005-1.030) Urine Protein Negative (Negative) Urine Glucose (UA) Negative (Negative) Urine Ketones Negative (Negative) Urine Occult Blood Trace-lysed H (Negative) Urine Nitrite Negative (Negative) Urine Bilirubin Negative (Negative) Urine Urobilinogen 0.2 (0.2-1.0) Ur Leukocyte Esterase Negative (Negative) Urine RBC Not seen (0-5) /hpf Urine WBC Not seen (0-5) /hpf Ur Epithelial Cells Not seen (0-5) /hpf Urine Bacteria Rare (FEW) /hpf Urine Mucus Not seen (FEW) /hpf SARS-CoV-2 RNA (ANGELA) Negative (NEGATIVE) 02/06/21 02/06/21 Range/Units 15:00 15:00 WBC (4.23-9.07) K/mm3 RBC (4.63-6.08) M/mm3 Hgb (13.7-17.5) gm/dl Hct (40.1-51.0) % MCV (79.0-92.2) fl MCH (25.7-32.2) pg MCHC (32.2-35.5) g/dl RDW Std Deviation (35.1-43.9) fL Plt Count (163-337) K/mm3 MPV (9.4-12.3) fl Neut % (Auto) (34.0-67.9) % Lymph % (Auto) (21.8-53.1) % [place] % (Auto) (5.3-12.2) % Eos % (Auto) (0.8-7.0) Baso % (Auto) (0.1-1.2) % Neut # (Auto) (1.78-5.38) K/mm3 Lymph # (Auto) (1.32-3.57) K/mm3 [place] # (Auto) (0.30-0.82) K/mm3 Eos # (Auto) (0.04-0.54) K/mm3 Baso # (Auto) (0.01-0.08) K/mm3 Manual Slide Review ESR (0-15) mm/hr PT (9.7-12.0) SECONDS INR APTT (21.7-31.4) SECONDS D-Dimer, Quantitative (0.19-0.50) mg/L Sodium (136-145) mEq/L Potassium (3.5-5.1) mEq/L Chloride (98-107) mEq/L Carbon Dioxide (21-32) mEq/L Anion Gap (5-15) BUN (7-18) mg/dL Creatinine (0.7-1.3) mg/dL Est Cr Clr Drug Dosing Estimated GFR (MDRD) (>60) mL/min BUN/Creatinine Ratio (14-18) Glucose (70-99) mg/dL Lactic Acid 1.5 (0.4-2.0) mmol/L Calcium (8.5-10.1) mg/dL Magnesium (1.8-2.4) mg/dL Total Bilirubin (0.2-1.0) mg/dL AST (15-37) U/L ALT (16-63) U/L Alkaline Phosphatase (46-116) U/L CK-MB (CK-2) (0-3.6) ng/ml Troponin I 0.349 H* (0.00-0.056) ng/mL C-Reactive Protein (<1.0) mg/dL NT-Pro-B Natriuret Pep (0-125) pg/mL Total Protein (6.4-8.2) g/dl Albumin (3.4-5.0) g/dl Globulin gm/dL Albumin/Globulin Ratio (1-2) Urine Color (Yellow) Urine Appearance (Clear) Urine pH (5.0-8.0) Ur Specific [place] (1.005-1.030) Urine Protein (Negative) Urine Glucose (UA) (Negative) Urine Ketones (Negative) Urine Occult Blood (Negative) Urine Nitrite (Negative) Urine Bilirubin (Negative) Urine Urobilinogen (0.2-1.0) Ur Leukocyte Esterase (Negative) Urine RBC (0-5) /hpf Urine WBC (0-5) /hpf Ur Epithelial Cells (0-5) /hpf Urine Bacteria (FEW) /hpf Urine Mucus (FEW) /hpf SARS-CoV-2 RNA (ANGELA) (NEGATIVE) Result Diagrams: 02/06/21 10:08 02/06/21 10:08 #1 Interpretation EKG Date: 02/06/21 Rhythm: Other (Junctional Tacycardia) QRS: RBBB EKG Interpretation Comments: ateroseptal infacrct Rate 145; QTc 522 #2 Interpretation EKG Date: 02/06/21 Rhythm: Other (sinus vs ectopic atrial tachycardia QTc 513) Sepsis Event Note - Evaluation Sepsis Screening Result: Possible Sepsis Risk - Focused Exam Vital Signs: Vital Signs Temp Pulse Pulse Pulse Resp BP BP 02/06/21 16:56 97.1 F 02/06/21 16:49 138 H 19 98/78 02/06/21 16:48 23 H 02/06/21 16:42 138 H 91/02/06/21 16:30 140 H 23 H 02/06/21 16:29 139 H 33 H 02/06/21 16:26 02/06/21 16:15 141 H 33 H 99/79 02/06/21 16:14 140 H 24 H 02/06/21 16:13 141 H 103/81 02/06/21 16:05 140 H 16 103/81 02/06/21 16:04 139 H 19 02/06/21 16:02 139 H 29 H 02/06/21 14:43 147 H 108/77 02/06/21 09:57 97.3 F 148 H 99 24 H 107/86 Pulse Ox Pulse Ox 02/06/21 16:56 95 02/06/21 16:49 93 L 02/06/21 16:48 02/06/21 16:42 02/06/21 16:30 100 02/06/21 16:29 100 02/06/21 16:26 95 02/06/21 16:15 98 02/06/21 16:14 97 02/06/21 16:13 02/06/21 16:05 93 L 02/06/21 16:04 92 L 02/06/21 16:02 88 L 02/06/21 14:43 02/06/21 09:57 99 96 *Q Meaningful Use (ADM) - VTE *Q VTE Criteria *Q: 1 Problem List Initiated/Reviewed/Updated: Yes Orders Last 24hrs: Active Orders 24 hr Category Date Time Status Admission Status [Patient Status] [ADT] Routine ADT 02/06/21 14:35 Active Cardiac Monitoring [RC] CONTINUOUS Care 02/06/21 14:22 Active EKG Documentation Completion [RC] ROUTINE Care 02/06/21 16:25 Active EKG Documentation Completion [RC] STAT Care 02/06/21 13:33 Active Height and Weight [RC] DAILY Care 02/06/21 14:22 Active Incentive Spirometry [RT Incentive Spirometry] [RC] Care 02/06/21 15:31 Active ASDIRECTED Intake and Output [RC] QSHIFT Care 02/06/21 14:22 Active Notify Provider Vital Signs [RC] ASDIRECTED Care 02/06/21 14:22 Active Oxygen Therapy [RC] PRN Care 02/06/21 14:22 Active Pulse Oximetry [RC] CONTINUOUS Care 02/06/21 14:22 Active RT Aerosol Therapy [RC] ASDIRECTED Care 02/06/21 09:57 Active RT Aerosol Therapy [RC] ASDIRECTED Care 02/06/21 16:10 Active Up With Assistance [RC] ASDIRECTED Care 02/06/21 14:22 Active VTE/DVT Education [RC] PER UNIT ROUTINE Care 02/06/21 14:22 Active Vital Signs [RC] Q4H Care 02/06/21 14:22 Active Consult to Case Management/Newsp[employer] Subscription Solicitor [CONS] Cons 02/06/21 14:22 Active Routine OT Evaluation and Treatment [CONS] Routine Cons 02/06/21 14:22 Active PT Evaluation and Treatment [CONS] Routine Cons 02/06/21 14:22 Active Respiratory Care Assess and Treatment [CONS] Routine Cons 02/06/21 14:22 Active Heart Healthy Diet [DIET] Diet 02/06/21 Dinner Active Chest 1V Frontal [CR] Stat Exams 02/06/21 09:59 Taken Echo Comp wo Cont [US] Routine Exams 02/06/21 14:26 Ordered BASIC METABOLIC PANEL,BMP [CHEM] DAILY Lab 02/07/21 06:00 Ordered BASIC METABOLIC PANEL,BMP [CHEM] DAILY Lab 02/08/21 06:00 Ordered BASIC METABOLIC PANEL,BMP [CHEM] DAILY Lab 02/09/21 06:00 Ordered BASIC METABOLIC PANEL,BMP [CHEM] DAILY Lab 02/10/21 06:00 Ordered BASIC METABOLIC PANEL,BMP [CHEM] DAILY Lab 02/11/21 06:00 Ordered BASIC METABOLIC PANEL,BMP [CHEM] Routine Lab 02/06/21 21:00 Ordered CBC WITH AUTO DIFF [HEME] DAILY Lab 02/07/21 06:00 Ordered CBC WITH AUTO DIFF [HEME] DAILY Lab 02/08/21 06:00 Ordered CBC WITH AUTO DIFF [HEME] DAILY Lab 02/09/21 06:00 Ordered CBC WITH AUTO DIFF [HEME] DAILY Lab 02/10/21 06:00 Ordered LACTIC ACID [CHEM] Routine Lab 02/06/21 21:00 Ordered MAGNESIUM [CHEM] DAILY Lab 02/07/21 06:00 Ordered MAGNESIUM [CHEM] DAILY Lab 02/08/21 06:00 Ordered MAGNESIUM [CHEM] DAILY Lab 02/09/21 06:00 Ordered MAGNESIUM [CHEM] DAILY Lab 02/10/21 06:00 Ordered MAGNESIUM [CHEM] DAILY Lab 02/11/21 06:00 Ordered MG [MAGNESIUM] [CHEM] Routine Lab 02/06/21 21:00 Ordered PROCALCITONIN [REF] Stat Lab 02/06/21 10:08 Received TROPONIN I [CHEM] Routine Lab 02/06/21 21:00 Ordered Acetaminophen [TylenoL] Med 02/06/21 14:22 Active 650 mg PO Q4H PRN Albumin 25% [Flexbumin 25%] 12.5 gm Med 02/06/21 16:30 Active Premix Bag 1 bag IV ONETIME Albumin 25% [Flexbumin 25%] 12.5 gm Med 02/06/21 16:30 Active Premix Bag 1 bag IV ONETIME Aspirin [Ecotrin] Med 02/06/21 16:15 Active 325 mg PO DAILY Benzonatate [Tessalon Perles] Med 02/06/21 16:10 Active 100 mg PO BID PRN Dextrose 5%-0.9% NaCl [Dextrose 5%-Normal Saline] 1,000 Med 02/06/21 10:00 Active ml IV ASDIRECTED Furosemide [Lasix] 100 mg Med 02/06/21 16:45 Active Sodium Chloride 0.9% [Normal Saline] 90 ml IV TITRATE Heparin Sodium Med 02/06/21 14:30 Active 5,000 units SUBCUT Q8H Metoprolol Tartrate [Lopressor] Med 02/06/21 16:07 Active 5 mg IVPUSH Q4H PRN Ondansetron [Zofran ODT] Med 02/06/21 14:22 Active 4 mg PO Q6H PRN Ondansetron [Zofran] Med 02/06/21 14:22 Active 4 mg IV Q4H PRN Sodium Chloride 0.9% [Normal Saline] 100 ml Med 02/06/21 12:30 Active IV ASDIRECTED Tiotropium [place] [Spiriva Respimat] Med 02/06/21 20:00 Active See Dose Instructions INH DAILY@1999 levalbuterol HCL [Xopenex] Med 02/06/21 16:09 Active 0.63 mg NEB Q4HRRT PRN Resuscitation Status Routine Resus Stat 02/06/21 14:22 Ordered Medication Orders Acetaminophen (Acetaminophen 325 Mg Tab) 650 mg PO Q4H PRN PRN Reason: Pain (Mild 1-3)/fever Aspirin (Aspirin 325 Mg Tab.Ec) 325 mg PO DAILY TOMY Last Admin: 02/06/21 16:24 Dose: 325 mg Documented by: EMETERIO Benzonatate (Benzonatate 100 Mg Cap) 100 mg PO BID PRN PRN Reason: cough Last Admin: 02/06/21 16:42 Dose: 100 mg Documented by: EMETERIO Heparin Sodium (Porcine) (Heparin Sodium 5,000 Units/Ml Vial) 5,000 units SUBCUT Q8H [facility] Last Admin: 02/06/21 16:24 Dose: 5,000 units Documented by: EMETERIO Dextrose/Sodium Chloride (Dextrose 5%-Normal Saline) 1,000 mls @ 999 mls/hr IV ASDIRECTED [facility] Last Admin: 02/06/21 10:39 Dose: 999 mls/hr Documented by: JOHN Sodium Chloride (Normal Saline) 100 mls @ 60 mls/hr IV ASDIRECTED [facility] Last Admin: 02/06/21 12:41 Dose: 60 mls/hr Documented by: TERI Albumin Human 12.5 gm/ Premix 50 mls @ 50 mls/hr IV ONETIME ONE Stop: 02/06/21 17:29 Last Admin: 02/06/21 16:19 Dose: 50 mls/hr Documented by: EMETERIO Albumin Human 12.5 gm/ Premix 50 mls @ 50 mls/hr IV ONETIME ONE Stop: 02/06/21 17:29 Furosemide 100 mg/ Sodium (Chloride) 100 mls @ 5 mls/hr IV TITRATE [facility]; Protocol Levalbuterol HCl (Levalbuterol Hcl 0.63 Mg/3 Ml Neb) 0.63 mg NEB Q4HRRT PRN PRN Reason: sob Last Admin: 02/06/21 16:26 Dose: 0.63 mg Documented by: EMETERIO Metoprolol Tartrate (Metoprolol Tartrate 5 Mg/5 Ml Sdv) 5 mg IVPUSH Q4H PRN PRN Reason: Tachycardia Last Admin: 02/06/21 16:13 Dose: 5 mg Documented by: EMETERIO Ondansetron HCl (Ondansetron 4 Mg Tab.Dis) 4 mg PO Q6H PRN PRN Reason: nausea, able to take PO Ondansetron HCl (Ondansetron 4 Mg/2 Ml Sdv) 4 mg IV Q4H PRN PRN Reason: Nausea/Vomiting Tiotropium [place] (Tiotropium [place] 4 Gm Inhalation [place] (2.5mcg/1 Dose; 10 Doses)) 0 gm INH DAILY@1999 [facility] Assessment/Plan Comment:: This is a 70M with PMhx of oxygen dependent COPD (3.5 liters baseline) presenting for SOB and fatigue. T He has had worsening lower extremity edema, orthopnea, and chronic cough that is worsening. He is active tobacco user. He denies chest pain, palpitations, fever, abdominal pain. In the ED the patient was noted to have HR in 140s. Troponin was 0.34. he had elevated BNP 8000. EKG showed junctional tachycardia. CT PE negative for PE, small pleural effusions, Cardiomegaly, +emphesematous changes. He was given IVF, lasix, duoneb, diltiazem and admitted for further evaluation. 1. Acute CHF exacerbation; baseline EF unknown 2. Acute on chronic hypoxic respiratory failure/Acute COPD exacerbation 3. Hx of tobacco use disorder 4. Elevated Troponin; likely supply/demand mismatch mediated ischemia 5. Suspected hx of CAD 6. Pleural Effusions 7. Thrombocytopenia Plan -admit to icu -tele -start albumin -lasix gtt -goal MAP>65 -IV metoprolol for HR>120 -electrolyte replacement -echo -monitor I&O -start prednisone -aspirin X1 -xopenex nebs prn -tessalon prn -RT consult -serial troponin Goals of Care-DNR/DNI: patient declines transfer to tertiary [facility]; he wishes to be DNR/DNI DVT ppx-heparin subq Prognosis is guarded
[2021-02-06] MEDS ORDERED: LORazepam 2 MG/ML SDV IVPUSH ONE (22:41)
[2021-02-06] MEDS ORDERED: Albumin 25% 12.5 GM/50 ML BAG IV ONE (22:42)
[2021-02-06] MEDS ORDERED: methylPREDNISolone Sodium Succinate 125 MG/2 ML SDV IVPUSH ONE (22:42)
[2021-02-06] MEDS ORDERED: Calcium Gluconate 10% 1 GM/10 ML SDV IV ONE (22:45)
[2021-02-06] MEDS ORDERED: Lactated Ringers 250 ML IV ONE (23:31)
[2021-02-07] MEDS ORDERED: Albumin 25% 12.5 GM/50 ML BAG IV ONE (02:37)
[2021-02-07] MEDS ORDERED: Lactated Ringers 250 ML IV SCH (02:45)
[2021-02-07] MEDS: Heparin Sodium 5,000 Units/ML Vial SUBCUT SCH (05:37)
[2021-02-07] MEDS ORDERED: Levofloxacin/Dextrose 5%-Water 500 MG in Premix Bag 1 BAG IV ONE (07:01)
--- NOTE | 2021-02-07 08:54 | CR ---
Chest: Portable view of the chest was obtained. Comparison: Prior CT chest exam of 02/06/21. Findings: Small right-sided pleural effusion is seen. Other areas of increased density within the right lung base are seen most likely representing other areas of pleural effusion. Heart is enlarged. Lungs otherwise are clear. Bony structures are osteopenic but show nothing acute. Impression: 1. Right-sided pleural effusion. 2. Cardiomegaly and osteopenia. Diagnostic code #3
[2021-02-07] MEDS ORDERED: Albumin 25% 12.5 GM in Premix Bag 1 BAG IV ONE (09:12)
[2021-02-07] MEDS ORDERED: Lactated Ringers 1,000 ML IV SCH (09:15)
[2021-02-07] MEDS: Aspirin 325 MG Tab.EC PO SCH (09:37)
--- NOTE | 2021-02-07 09:44 | PCM.DCSUM1 ---
Discharge Summary - Hospital Course HPI Initial Comments: BRIAN This is a 70M with PMhx of oxygen dependent COPD (3.5 liters baseline) presenting for SOB and fatigue. The patient states he has not showered since september due to generalized weakness. He has family deliver meals and uses a scooter to navigate around his home. He states he cant take care of himself. He has had worsening lower extremity edema, orthopnea, and chronic cough that is worsening. He is active tobacco user. He denies chest pain, palpitations, fever, abdominal pain. In the ED the patient was noted to have HR in 140s. Troponin was 0.34. he had elevated BNP 8000. EKG showed junctional tachycardia. CT PE negative for PE, small pleural effusions, Cardiomegaly, +emphesematous changes. He was given IVF, lasix, duoneb, diltiazem and admitted for further evaluation. HOSPITAL SUMMARY This is a 70M with PMhx of oxygen dependent COPD (3.5 liters baseline) presenting for SOB and fatigue. T He has had worsening lower extremity edema, orthopnea, and chronic cough that is worsening. He is active tobacco user. He denies chest pain, palpitations, fever, abdominal pain. In the ED the patient was noted to have HR in 140s. Troponin was 0.34. he had elevated BNP 8000. EKG showed junctional tachycardia. CT PE negative for PE, small pleural effusions, Cardiomegaly, +emphesematous changes. He was given IVF, lasix, duoneb, diltiazem and admitted for further evaluation. 1. Acute CHF exacerbation; baseline EF unknown -unable to obtain echo this AM due to tachycardia -started on lasix drip and albumin; stopped due to hypotension -attempted rate control with IV metoprolol -repeat CXR showing Cardiomegaly and Right pleural effusion; diuresis limited due to hypotension 2. Acute on chronic hypoxic and hypercapnic respiratory failure/Acute COPD exacerbation -treated with xopenex/solumedrol/levaquin -repeat ABG this AM -started on BIPAP -CT PE negative for PE -repeat ABG after several hours on BIPAP this morning pH7.37, PCO2 64, PO2 109, HCO3 35 3. Hx of tobacco use disorder 4. Elevated Troponin; likely supply/demand mismatch mediated ischemia -EKG with junctional tachycardia; and intermittent sinus tachycardia; HR persistently in 130s -0.34->0.34->0.39 5. Suspected hx of CAD -given aspirin -denied CP, Palpitations, chest pressure -tele -will need cardiology consult; echo 6. Pleural Effusions 7. Thrombocytopenia 8. Vulnerable adult; lives alone; unable to complete ADLs, has not showered in months; has not sought medical care in months; little known past medical hx. 9. Suspected malnutrtion and failure to thrive 10. Hyperkalemia; potasium 5.6; treated with nebs, lasix, calcium 11. Presumed CKD Stage III; Cr 1.5 Due to worsening respiratory failure and persistent tachycardia+Hypotension; attempt made to transfer to [facility] in [place] who did not have ICU bed availability. The patient will be transferred to [facility] in [place]. Case discussed with Dr. Cruz of Hospital Medicine service who graciously accepted patient. Patient likely will require Cardiology/Critical Care consultations. Diagnosis: Stroke: No - Discharge Data Discharge Date: 02/07/21 Discharge Disposition: DC/Tfer to Acute Hospital 02 Condition: Serious - Referral to Home Health Primary Care Physician: PCP None - Patient Summary/Data Consults: Consultations 02/06/21 14:22 Consult to Case Management/Soda Fountain Operator [CONS] Routine OT Evaluation and Treatment [CONS] Routine PT Evaluation and Treatment [CONS] Routine Respiratory Care Assess and Treatment [CONS] Routine - Discharge Plan *PRESCRIPTION DRUG MONITORING PROGRAM REVIEWED*: Not Applicable *COPY OF PRESCRIPTION DRUG MONITORING REPORT IN PATIENT PIERO: Not Applicable Home Medications: Home Meds Budesonide/Formoterol [Symbicort 160-4.5 MCG] 2 puff INH BID 02/07/21 [History] Fluticasone/Vilanterol [Breo Ellipta 200-25 MCG Inhalation Kit] 1 puff INH DAILY 02/07/21 [History] OXcarbazepine [Oxcarbazepine] 150 mg PO TID 02/07/21 [History] Tiotropium [Spiriva HandiHaler] 1 puff INH DAILY 02/07/21 [History] Oxygen Therapy Mode: BiPAP Forms: ED Department Discharge Referrals: PCP,None [Primary Care Provider] - - Discharge Summary/Plan Comment DC Time >30 min.: Yes (45 minutes) Total # of Minutes for Discharge Time: 45 minutes - Patient Data Vitals - Most Recent: Last Vital Signs Temp 97.2 F 02/07/21 04:00 Pulse 134 H 02/07/21 08:01 Resp 23 H 02/07/21 08:01 BP 81/70 L 02/07/21 08:00 Pulse Ox 95 02/07/21 09:31 Weight - Most Recent: 154 lb 12.8 oz I&O - Last 24 hours: Intake & Output 02/06/21 02/07/21 02/07/21 22:59 06:59 14:59 Intake Total 150 718 Output Total 400 550 Balance -250 168 Lab Results - Last 24 hrs: Laboratory Results - last 24 hr 02/06/21 02/06/21 02/06/21 Range/Units 10:08 10:08 10:08 WBC 5.45 (4.23-9.07) K/mm3 RBC 4.19 L (4.63-6.08) M/mm3 Hgb 12.1 L (13.7-17.5) gm/dl Hct 42.5 (40.1-51.0) % MCV 101.4 H (79.0-92.2) fl MCH 28.9 (25.7-32.2) pg MCHC 28.5 L (32.2-35.5) g/dl RDW Std Deviation 50.8 H (35.1-43.9) fL Plt Count 126 L (163-337) K/mm3 MPV 11.9 (9.4-12.3) fl Neut % (Auto) 75.2 H (34.0-67.9) % Lymph % (Auto) 13.2 L (21.8-53.1) % Sandoval % (Auto) 9.9 (5.3-12.2) % Eos % (Auto) 1.1 (0.8-7.0) Baso % (Auto) 0.6 (0.1-1.2) % Neut # (Auto) 4.10 (1.78-5.38) K/mm3 Lymph # (Auto) 0.72 L (1.32-3.57) K/mm3 Sandoval # (Auto) 0.54 (0.30-0.82) K/mm3 Eos # (Auto) 0.06 (0.04-0.54) K/mm3 Baso # (Auto) 0.03 (0.01-0.08) K/mm3 Manual Slide Review Abnormal smear ESR (0-15) mm/hr PT 13.6 H (9.7-12.0) SECONDS INR 1.28 APTT (21.7-31.4) SECONDS D-Dimer, Quantitative (0.19-0.50) mg/L Puncture Site ABG pH (7.35-7.45) ABG pCO2 (35.0-45.0) mmHg ABG pO2 (80.0-100.0) mmHg ABG HCO3 (22.0-26.0) meq/L ABG O2 Saturation (96.0-97.0) % ABG Base Excess (-2-2.0) Clarke Test VBG pH (7.30-7.40) VBG pCO2 (41-51) mmHg VBG pO2 (40-80) mmHG VBG HCO3 (22-26) meq/L VBG O2 Saturation VBG Base Excess (-4.0-2.0) A-a Gradient mmHg O2 Delivery Device Oxygen Flow Rate FiO2 (21.00-100.00) % PEEP cmH20 Blood Gas Comments Sodium 143 (136-145) mEq/L Potassium 4.4 (3.5-5.1) mEq/L Chloride 103 (98-107) mEq/L Carbon Dioxide 37 H (21-32) mEq/L Anion Gap 7.4 (5-15) BUN 16 (7-18) mg/dL Creatinine 1.1 (0.7-1.3) mg/dL Est Cr Clr Drug Dosing TNP Estimated GFR (MDRD) > 60 (>60) mL/min BUN/Creatinine Ratio 14.5 (14-18) Glucose 120 H (70-99) mg/dL POC Glucose (70-99) mg/dL Lactic Acid (0.4-2.0) mmol/L Calcium 7.9 L (8.5-10.1) mg/dL Magnesium 2.0 (1.8-2.4) mg/dL Total Bilirubin 0.7 (0.2-1.0) mg/dL AST 20 (15-37) U/L ALT 20 (16-63) U/L Alkaline Phosphatase 75 (46-116) U/L CK-MB (CK-2) (0-3.6) ng/ml Troponin I 0.349 H* (0.00-0.056) ng/mL C-Reactive Protein 1.7 H* (<1.0) mg/dL NT-Pro-B Natriuret Pep (0-125) pg/mL Total Protein 6.4 (6.4-8.2) g/dl Albumin 2.8 L (3.4-5.0) g/dl Globulin 3.6 gm/dL Albumin/Globulin Ratio 0.8 L (1-2) Urine Color (Yellow) Urine Appearance (Clear) Urine pH (5.0-8.0) Ur Specific Alexander (1.005-1.030) Urine Protein (Negative) Urine Glucose (UA) (Negative) Urine Ketones (Negative) Urine Occult Blood (Negative) Urine Nitrite (Negative) Urine Bilirubin (Negative) Urine Urobilinogen (0.2-1.0) Ur Leukocyte Esterase (Negative) Urine RBC (0-5) /hpf Urine WBC (0-5) /hpf Ur Epithelial Cells (0-5) /hpf Urine Bacteria (FEW) /hpf Urine Mucus (FEW) /hpf SARS-CoV-2 RNA (ANGELA) (NEGATIVE) 02/06/21 02/06/21 02/06/21 Range/Units 10:08 10:08 10:08 WBC (4.23-9.07) K/mm3 RBC (4.63-6.08) M/mm3 Hgb (13.7-17.5) gm/dl Hct (40.1-51.0) % MCV (79.0-92.2) fl MCH (25.7-32.2) pg MCHC (32.2-35.5) g/dl RDW Std Deviation (35.1-43.9) fL Plt Count (163-337) K/mm3 MPV (9.4-12.3) fl Neut % (Auto) (34.0-67.9) % Lymph % (Auto) (21.8-53.1) % Sandoval % (Auto) (5.3-12.2) % Eos % (Auto) (0.8-7.0) Baso % (Auto) (0.1-1.2) % Neut # (Auto) (1.78-5.38) K/mm3 Lymph # (Auto) (1.32-3.57) K/mm3 Sandoval # (Auto) (0.30-0.82) K/mm3 Eos # (Auto) (0.04-0.54) K/mm3 Baso # (Auto) (0.01-0.08) K/mm3 Manual Slide Review ESR 6 (0-15) mm/hr PT (9.7-12.0) SECONDS INR APTT 26.2 (21.7-31.4) SECONDS D-Dimer, Quantitative 8.27 H (0.19-0.50) mg/L Puncture Site ABG pH (7.35-7.45) ABG pCO2 (35.0-45.0) mmHg ABG pO2 (80.0-100.0) mmHg ABG HCO3 (22.0-26.0) meq/L ABG O2 Saturation (96.0-97.0) % ABG Base Excess (-2-2.0) Clarke Test VBG pH (7.30-7.40) VBG pCO2 (41-51) mmHg VBG pO2 (40-80) mmHG VBG HCO3 (22-26) meq/L VBG O2 Saturation VBG Base Excess (-4.0-2.0) A-a Gradient mmHg O2 Delivery Device Oxygen Flow Rate FiO2 (21.00-100.00) % PEEP cmH20 Blood Gas Comments Sodium (136-145) mEq/L Potassium (3.5-5.1) mEq/L Chloride (98-107) mEq/L Carbon Dioxide (21-32) mEq/L Anion Gap (5-15) BUN (7-18) mg/dL Creatinine (0.7-1.3) mg/dL Est Cr Clr Drug Dosing Estimated GFR (MDRD) (>60) mL/min BUN/Creatinine Ratio (14-18) Glucose (70-99) mg/dL POC Glucose (70-99) mg/dL Lactic Acid (0.4-2.0) mmol/L Calcium (8.5-10.1) mg/dL Magnesium (1.8-2.4) mg/dL Total Bilirubin (0.2-1.0) mg/dL AST (15-37) U/L ALT (16-63) U/L Alkaline Phosphatase (46-116) U/L CK-MB (CK-2) (0-3.6) ng/ml Troponin I (0.00-0.056) ng/mL C-Reactive Protein (<1.0) mg/dL NT-Pro-B Natriuret Pep 8000 H (0-125) pg/mL Total Protein (6.4-8.2) g/dl Albumin (3.4-5.0) g/dl Globulin gm/dL Albumin/Globulin Ratio (1-2) Urine Color (Yellow) Urine Appearance (Clear) Urine pH (5.0-8.0) Ur Specific Alexander (1.005-1.030) Urine Protein (Negative) Urine Glucose (UA) (Negative) Urine Ketones (Negative) Urine Occult Blood (Negative) Urine Nitrite (Negative) Urine Bilirubin (Negative) Urine Urobilinogen (0.2-1.0) Ur Leukocyte Esterase (Negative) Urine RBC (0-5) /hpf Urine WBC (0-5) /hpf Ur Epithelial Cells (0-5) /hpf Urine Bacteria (FEW) /hpf Urine Mucus (FEW) /hpf SARS-CoV-2 RNA (ANGELA) (NEGATIVE) 02/06/21 02/06/21 02/06/21 Range/Units 10:08 10:09 14:50 WBC (4.23-9.07) K/mm3 RBC (4.63-6.08) M/mm3 Hgb (13.7-17.5) gm/dl Hct (40.1-51.0) % MCV (79.0-92.2) fl MCH (25.7-32.2) pg MCHC (32.2-35.5) g/dl RDW Std Deviation (35.1-43.9) fL Plt Count (163-337) K/mm3 MPV (9.4-12.3) fl Neut % (Auto) (34.0-67.9) % Lymph % (Auto) (21.8-53.1) % Sandoval % (Auto) (5.3-12.2) % Eos % (Auto) (0.8-7.0) Baso % (Auto) (0.1-1.2) % Neut # (Auto) (1.78-5.38) K/mm3 Lymph # (Auto) (1.32-3.57) K/mm3 Sandoval # (Auto) (0.30-0.82) K/mm3 Eos # (Auto) (0.04-0.54) K/mm3 Baso # (Auto) (0.01-0.08) K/mm3 Manual Slide Review ESR (0-15) mm/hr PT (9.7-12.0) SECONDS INR APTT (21.7-31.4) SECONDS D-Dimer, Quantitative (0.19-0.50) mg/L Puncture Site ABG pH (7.35-7.45) ABG pCO2 (35.0-45.0) mmHg ABG pO2 (80.0-100.0) mmHg ABG HCO3 (22.0-26.0) meq/L ABG O2 Saturation (96.0-97.0) % ABG Base Excess (-2-2.0) Clarke Test VBG pH (7.30-7.40) VBG pCO2 (41-51) mmHg VBG pO2 (40-80) mmHG VBG HCO3 (22-26) meq/L VBG O2 Saturation VBG Base Excess (-4.0-2.0) A-a Gradient mmHg O2 Delivery Device Oxygen Flow Rate FiO2 (21.00-100.00) % PEEP cmH20 Blood Gas Comments Sodium (136-145) mEq/L Potassium (3.5-5.1) mEq/L Chloride (98-107) mEq/L Carbon Dioxide (21-32) mEq/L Anion Gap (5-15) BUN (7-18) mg/dL Creatinine (0.7-1.3) mg/dL Est Cr Clr Drug Dosing Estimated GFR (MDRD) (>60) mL/min BUN/Creatinine Ratio (14-18) Glucose (70-99) mg/dL POC Glucose (70-99) mg/dL Lactic Acid (0.4-2.0) mmol/L Calcium (8.5-10.1) mg/dL Magnesium (1.8-2.4) mg/dL Total Bilirubin (0.2-1.0) mg/dL AST (15-37) U/L ALT (16-63) U/L Alkaline Phosphatase (46-116) U/L CK-MB (CK-2) 2.4 (0-3.6) ng/ml Troponin I (0.00-0.056) ng/mL C-Reactive Protein (<1.0) mg/dL NT-Pro-B Natriuret Pep (0-125) pg/mL Total Protein (6.4-8.2) g/dl Albumin (3.4-5.0) g/dl Globulin gm/dL Albumin/Globulin Ratio (1-2) Urine Color Yellow (Yellow) Urine Appearance Clear (Clear) Urine pH 7.0 (5.0-8.0) Ur Specific Alexander 1.020 (1.005-1.030) Urine Protein Negative (Negative) Urine Glucose (UA) Negative (Negative) Urine Ketones Negative (Negative) Urine Occult Blood Trace-lysed H (Negative) Urine Nitrite Negative (Negative) Urine Bilirubin Negative (Negative) Urine Urobilinogen 0.2 (0.2-1.0) Ur Leukocyte Esterase Negative (Negative) Urine RBC Not seen (0-5) /hpf Urine WBC Not seen (0-5) /hpf Ur Epithelial Cells Not seen (0-5) /hpf Urine Bacteria Rare (FEW) /hpf Urine Mucus Not seen (FEW) /hpf SARS-CoV-2 RNA (ANGELA) Negative (NEGATIVE) 02/06/21 02/06/21 02/06/21 Range/Units 15:00 15:00 18:41 WBC (4.23-9.07) K/mm3 RBC (4.63-6.08) M/mm3 Hgb (13.7-17.5) gm/dl Hct (40.1-51.0) % MCV (79.0-92.2) fl MCH (25.7-32.2) pg MCHC (32.2-35.5) g/dl RDW Std Deviation (35.1-43.9) fL Plt Count (163-337) K/mm3 MPV (9.4-12.3) fl Neut % (Auto) (34.0-67.9) % Lymph % (Auto) (21.8-53.1) % Sandoval % (Auto) (5.3-12.2) % Eos % (Auto) (0.8-7.0) Baso % (Auto) (0.1-1.2) % Neut # (Auto) (1.78-5.38) K/mm3 Lymph # (Auto) (1.32-3.57) K/mm3 Sandoval # (Auto) (0.30-0.82) K/mm3 Eos # (Auto) (0.04-0.54) K/mm3 Baso # (Auto) (0.01-0.08) K/mm3 Manual Slide Review ESR (0-15) mm/hr PT (9.7-12.0) SECONDS INR APTT (21.7-31.4) SECONDS D-Dimer, Quantitative (0.19-0.50) mg/L Puncture Site Lt radial ABG pH 7.33 L (7.35-7.45) ABG pCO2 71.6 H* (35.0-45.0) mmHg ABG pO2 70.0 L (80.0-100.0) mmHg ABG HCO3 36.5 H (22.0-26.0) meq/L ABG O2 Saturation 91.7 L (96.0-97.0) % ABG Base Excess 8.6 H (-2-2.0) Clarke Test Positive VBG pH (7.30-7.40) VBG pCO2 (41-51) mmHg VBG pO2 (40-80) mmHG VBG HCO3 (22-26) meq/L VBG O2 Saturation VBG Base Excess (-4.0-2.0) A-a Gradient 68 mmHg O2 Delivery Device Nasal cannula Oxygen Flow Rate 3.0 FiO2 32.00 (21.00-100.00) % PEEP cmH20 Blood Gas Comments Sodium (136-145) mEq/L Potassium (3.5-5.1) mEq/L Chloride (98-107) mEq/L Carbon Dioxide (21-32) mEq/L Anion Gap (5-15) BUN (7-18) mg/dL Creatinine (0.7-1.3) mg/dL Est Cr Clr Drug Dosing Estimated GFR (MDRD) (>60) mL/min BUN/Creatinine Ratio (14-18) Glucose (70-99) mg/dL POC Glucose (70-99) mg/dL Lactic Acid 1.5 (0.4-2.0) mmol/L Calcium (8.5-10.1) mg/dL Magnesium (1.8-2.4) mg/dL Total Bilirubin (0.2-1.0) mg/dL AST (15-37) U/L ALT (16-63) U/L Alkaline Phosphatase (46-116) U/L CK-MB (CK-2) (0-3.6) ng/ml Troponin I 0.349 H* (0.00-0.056) ng/mL C-Reactive Protein (<1.0) mg/dL NT-Pro-B Natriuret Pep (0-125) pg/mL Total Protein (6.4-8.2) g/dl Albumin (3.4-5.0) g/dl Globulin gm/dL Albumin/Globulin Ratio (1-2) Urine Color (Yellow) Urine Appearance (Clear) Urine pH (5.0-8.0) Ur Specific Alexander (1.005-1.030) Urine Protein (Negative) Urine Glucose (UA) (Negative) Urine Ketones (Negative) Urine Occult Blood (Negative) Urine Nitrite (Negative) Urine Bilirubin (Negative) Urine Urobilinogen (0.2-1.0) Ur Leukocyte Esterase (Negative) Urine RBC (0-5) /hpf Urine WBC (0-5) /hpf Ur Epithelial Cells (0-5) /hpf Urine Bacteria (FEW) /hpf Urine Mucus (FEW) /hpf SARS-CoV-2 RNA (ANGELA) (NEGATIVE) 02/06/21 02/06/21 02/06/21 Range/Units 20:19 21:19 21:43 WBC (4.23-9.07) K/mm3 RBC (4.63-6.08) M/mm3 Hgb (13.7-17.5) gm/dl Hct (40.1-51.0) % MCV (79.0-92.2) fl MCH (25.7-32.2) pg MCHC (32.2-35.5) g/dl RDW Std Deviation (35.1-43.9) fL Plt Count (163-337) K/mm3 MPV (9.4-12.3) fl Neut % (Auto) (34.0-67.9) % Lymph % (Auto) (21.8-53.1) % Sandoval % (Auto) (5.3-12.2) % Eos % (Auto) (0.8-7.0) Baso % (Auto) (0.1-1.2) % Neut # (Auto) (1.78-5.38) K/mm3 Lymph # (Auto) (1.32-3.57) K/mm3 Sandoval # (Auto) (0.30-0.82) K/mm3 Eos # (Auto) (0.04-0.54) K/mm3 Baso # (Auto) (0.01-0.08) K/mm3 Manual Slide Review ESR (0-15) mm/hr PT (9.7-12.0) SECONDS INR APTT (21.7-31.4) SECONDS D-Dimer, Quantitative (0.19-0.50) mg/L Puncture Site Lt radial ABG pH 7.36 (7.35-7.45) ABG pCO2 69.2 H (35.0-45.0) mmHg ABG pO2 89.0 (80.0-100.0) mmHg ABG HCO3 37.6 H (22.0-26.0) meq/L ABG O2 Saturation 96.7 (96.0-97.0) % ABG Base Excess 10.1 H (-2-2.0) Clarke Test Positive VBG pH (7.30-7.40) VBG pCO2 (41-51) mmHg VBG pO2 (40-80) mmHG VBG HCO3 (22-26) meq/L VBG O2 Saturation VBG Base Excess (-4.0-2.0) A-a Gradient mmHg O2 Delivery Device Bipap Oxygen Flow Rate FiO2 32.00 (21.00-100.00) % PEEP cmH20 Blood Gas Comments Bipap setting /6 Sodium 143 (136-145) mEq/L Potassium 5.5 H (3.5-5.1) mEq/L Chloride 101 (98-107) mEq/L Carbon Dioxide 41 H* (21-32) mEq/L Anion Gap 6.5 (5-15) BUN 19 H (7-18) mg/dL Creatinine 1.4 H (0.7-1.3) mg/dL Est Cr Clr Drug Dosing 45.96 Estimated GFR (MDRD) 50 (>60) mL/min BUN/Creatinine Ratio 13.6 L (14-18) Glucose 122 H (70-99) mg/dL POC Glucose 145 H (70-99) mg/dL Lactic Acid (0.4-2.0) mmol/L Calcium 8.1 L (8.5-10.1) mg/dL Magnesium 2.1 (1.8-2.4) mg/dL Total Bilirubin (0.2-1.0) mg/dL AST (15-37) U/L ALT (16-63) U/L Alkaline Phosphatase (46-116) U/L CK-MB (CK-2) (0-3.6) ng/ml Troponin I 0.363 H* (0.00-0.056) ng/mL C-Reactive Protein (<1.0) mg/dL NT-Pro-B Natriuret Pep (0-125) pg/mL Total Protein (6.4-8.2) g/dl Albumin (3.4-5.0) g/dl Globulin gm/dL Albumin/Globulin Ratio (1-2) Urine Color (Yellow) Urine Appearance (Clear) Urine pH (5.0-8.0) Ur Specific Alexander (1.005-1.030) Urine Protein (Negative) Urine Glucose (UA) (Negative) Urine Ketones (Negative) Urine Occult Blood (Negative) Urine Nitrite (Negative) Urine Bilirubin (Negative) Urine Urobilinogen (0.2-1.0) Ur Leukocyte Esterase (Negative) Urine RBC (0-5) /hpf Urine WBC (0-5) /hpf Ur Epithelial Cells (0-5) /hpf Urine Bacteria (FEW) /hpf Urine Mucus (FEW) /hpf SARS-CoV-2 RNA (ANGELA) (NEGATIVE) 02/06/21 02/06/21 02/07/21 Range/Units 21:43 23:00 05:10 WBC 2.89 L (4.23-9.07) K/mm3 RBC 3.89 L (4.63-6.08) M/mm3 Hgb 11.0 L (13.7-17.5) gm/dl Hct 39.5 L (40.1-51.0) % MCV 101.5 H (79.0-92.2) fl MCH 28.3 (25.7-32.2) pg MCHC 27.8 L (32.2-35.5) g/dl RDW Std Deviation 49.9 H (35.1-43.9) fL Plt Count 111 L (163-337) K/mm3 MPV 12.1 (9.4-12.3) fl Neut % (Auto) 85.1 H (34.0-67.9) % Lymph % (Auto) 12.1 L (21.8-53.1) % Sandoval % (Auto) 2.8 L (5.3-12.2) % Eos % (Auto) 0 L (0.8-7.0) Baso % (Auto) 0.0 L (0.1-1.2) % Neut # (Auto) 2.46 (1.78-5.38) K/mm3 Lymph # (Auto) 0.35 L (1.32-3.57) K/mm3 Sandoval # (Auto) 0.08 L (0.30-0.82) K/mm3 Eos # (Auto) 0.00 L (0.04-0.54) K/mm3 Baso # (Auto) 0.00 L (0.01-0.08) K/mm3 Manual Slide Review Abnormal smear ESR (0-15) mm/hr PT (9.7-12.0) SECONDS INR APTT (21.7-31.4) SECONDS D-Dimer, Quantitative (0.19-0.50) mg/L Puncture Site ABG pH (7.35-7.45) ABG pCO2 (35.0-45.0) mmHg ABG pO2 (80.0-100.0) mmHg ABG HCO3 (22.0-26.0) meq/L ABG O2 Saturation (96.0-97.0) % ABG Base Excess (-2-2.0) Clarke Test VBG pH (7.30-7.40) VBG pCO2 (41-51) mmHg VBG pO2 (40-80) mmHG VBG HCO3 (22-26) meq/L VBG O2 Saturation VBG Base Excess (-4.0-2.0) A-a Gradient mmHg O2 Delivery Device Oxygen Flow Rate FiO2 (21.00-100.00) % PEEP cmH20 Blood Gas Comments Sodium 142 (136-145) mEq/L Potassium 5.2 H (3.5-5.1) mEq/L Chloride 101 (98-107) mEq/L Carbon Dioxide 38 H (21-32) mEq/L Anion Gap 8.2 (5-15) BUN 20 H (7-18) mg/dL Creatinine 1.3 (0.7-1.3) mg/dL Est Cr Clr Drug Dosing 49.50 Estimated GFR (MDRD) 54 (>60) mL/min BUN/Creatinine Ratio 15.4 (14-18) Glucose 128 H (70-99) mg/dL POC Glucose (70-99) mg/dL Lactic Acid 1.5 (0.4-2.0) mmol/L Calcium 8.1 L (8.5-10.1) mg/dL Magnesium (1.8-2.4) mg/dL Total Bilirubin (0.2-1.0) mg/dL AST (15-37) U/L ALT (16-63) U/L Alkaline Phosphatase (46-116) U/L CK-MB (CK-2) (0-3.6) ng/ml Troponin I (0.00-0.056) ng/mL C-Reactive Protein (<1.0) mg/dL NT-Pro-B Natriuret Pep (0-125) pg/mL Total Protein (6.4-8.2) g/dl Albumin (3.4-5.0) g/dl Globulin gm/dL Albumin/Globulin Ratio (1-2) Urine Color (Yellow) Urine Appearance (Clear) Urine pH (5.0-8.0) Ur Specific Alexander (1.005-1.030) Urine Protein (Negative) Urine Glucose (UA) (Negative) Urine Ketones (Negative) Urine Occult Blood (Negative) Urine Nitrite (Negative) Urine Bilirubin (Negative) Urine Urobilinogen (0.2-1.0) Ur Leukocyte Esterase (Negative) Urine RBC (0-5) /hpf Urine WBC (0-5) /hpf Ur Epithelial Cells (0-5) /hpf Urine Bacteria (FEW) /hpf Urine Mucus (FEW) /hpf SARS-CoV-2 RNA (ANGELA) (NEGATIVE) 02/07/21 02/07/21 02/07/21 Range/Units 05:10 05:10 05:10 WBC (4.23-9.07) K/mm3 RBC (4.63-6.08) M/mm3 Hgb (13.7-17.5) gm/dl Hct (40.1-51.0) % MCV (79.0-92.2) fl MCH (25.7-32.2) pg MCHC (32.2-35.5) g/dl RDW Std Deviation (35.1-43.9) fL Plt Count (163-337) K/mm3 MPV (9.4-12.3) fl Neut % (Auto) (34.0-67.9) % Lymph % (Auto) (21.8-53.1) % Sandoval % (Auto) (5.3-12.2) % Eos % (Auto) (0.8-7.0) Baso % (Auto) (0.1-1.2) % Neut # (Auto) (1.78-5.38) K/mm3 Lymph # (Auto) (1.32-3.57) K/mm3 Sandoval # (Auto) (0.30-0.82) K/mm3 Eos # (Auto) (0.04-0.54) K/mm3 Baso # (Auto) (0.01-0.08) K/mm3 Manual Slide Review ESR (0-15) mm/hr PT (9.7-12.0) SECONDS INR APTT (21.7-31.4) SECONDS D-Dimer, Quantitative (0.19-0.50) mg/L Puncture Site ABG pH (7.35-7.45) ABG pCO2 (35.0-45.0) mmHg ABG pO2 (80.0-100.0) mmHg ABG HCO3 (22.0-26.0) meq/L ABG O2 Saturation (96.0-97.0) % ABG Base Excess (-2-2.0) Clarke Test VBG pH (7.30-7.40) VBG pCO2 (41-51) mmHg VBG pO2 (40-80) mmHG VBG HCO3 (22-26) meq/L VBG O2 Saturation VBG Base Excess (-4.0-2.0) A-a Gradient mmHg O2 Delivery Device Oxygen Flow Rate FiO2 (21.00-100.00) % PEEP cmH20 Blood Gas Comments Sodium 141 (136-145) mEq/L Potassium 5.6 H (3.5-5.1) mEq/L Chloride 101 (98-107) mEq/L Carbon Dioxide 42 H* (21-32) mEq/L Anion Gap 3.6 L (5-15) BUN 23 H (7-18) mg/dL Creatinine 1.5 H (0.7-1.3) mg/dL Est Cr Clr Drug Dosing 43.07 Estimated GFR (MDRD) 46 (>60) mL/min BUN/Creatinine Ratio 15.3 (14-18) Glucose 135 H (70-99) mg/dL POC Glucose (70-99) mg/dL Lactic Acid 1.2 (0.4-2.0) mmol/L Calcium 8.4 L (8.5-10.1) mg/dL Magnesium 2.0 (1.8-2.4) mg/dL Total Bilirubin (0.2-1.0) mg/dL AST (15-37) U/L ALT (16-63) U/L Alkaline Phosphatase (46-116) U/L CK-MB (CK-2) (0-3.6) ng/ml Troponin I (0.00-0.056) ng/mL C-Reactive Protein (<1.0) mg/dL NT-Pro-B Natriuret Pep 93627 H (0-125) pg/mL Total Protein (6.4-8.2) g/dl Albumin (3.4-5.0) g/dl Globulin gm/dL Albumin/Globulin Ratio (1-2) Urine Color (Yellow) Urine Appearance (Clear) Urine pH (5.0-8.0) Ur Specific Alexander (1.005-1.030) Urine Protein (Negative) Urine Glucose (UA) (Negative) Urine Ketones (Negative) Urine Occult Blood (Negative) Urine Nitrite (Negative) Urine Bilirubin (Negative) Urine Urobilinogen (0.2-1.0) Ur Leukocyte Esterase (Negative) Urine RBC (0-5) /hpf Urine WBC (0-5) /hpf Ur Epithelial Cells (0-5) /hpf Urine Bacteria (FEW) /hpf Urine Mucus (FEW) /hpf SARS-CoV-2 RNA (ANGELA) (NEGATIVE) 02/07/21 02/07/21 Range/Units 06:10 09:30 WBC (4.23-9.07) K/mm3 RBC (4.63-6.08) M/mm3 Hgb (13.7-17.5) gm/dl Hct (40.1-51.0) % MCV (79.0-92.2) fl MCH (25.7-32.2) pg MCHC (32.2-35.5) g/dl RDW Std Deviation (35.1-43.9) fL Plt Count (163-337) K/mm3 MPV (9.4-12.3) fl Neut % (Auto) (34.0-67.9) % Lymph % (Auto) (21.8-53.1) % Sandoval % (Auto) (5.3-12.2) % Eos % (Auto) (0.8-7.0) Baso % (Auto) (0.1-1.2) % Neut # (Auto) (1.78-5.38) K/mm3 Lymph # (Auto) (1.32-3.57) K/mm3 Sandoval # (Auto) (0.30-0.82) K/mm3 Eos # (Auto) (0.04-0.54) K/mm3 Baso # (Auto) (0.01-0.08) K/mm3 Manual Slide Review ESR (0-15) mm/hr PT (9.7-12.0) SECONDS INR APTT (21.7-31.4) SECONDS D-Dimer, Quantitative (0.19-0.50) mg/L Puncture Site Rt radial ABG pH 7.37 (7.35-7.45) ABG pCO2 64.2 H (35.0-45.0) mmHg ABG pO2 109.0 H (80.0-100.0) mmHg ABG HCO3 35.9 H (22.0-26.0) meq/L ABG O2 Saturation 98.3 H (96.0-97.0) % ABG Base Excess 9.0 H (-2-2.0) Clarke Test Positive VBG pH 7.29 L (7.30-7.40) VBG pCO2 82.7 H (41-51) mmHg VBG pO2 34.0 L (40-80) mmHG VBG HCO3 38.1 H (22-26) meq/L VBG O2 Saturation 38.0 VBG Base Excess 9.2 H (-4.0-2.0) A-a Gradient mmHg O2 Delivery Device Venturi mask Bipap Oxygen Flow Rate 12.0 FiO2 45.00 (21.00-100.00) % PEEP 7.0 cmH20 Blood Gas Comments Sodium (136-145) mEq/L Potassium (3.5-5.1) mEq/L Chloride (98-107) mEq/L Carbon Dioxide (21-32) mEq/L Anion Gap (5-15) BUN (7-18) mg/dL Creatinine (0.7-1.3) mg/dL Est Cr Clr Drug Dosing Estimated GFR (MDRD) (>60) mL/min BUN/Creatinine Ratio (14-18) Glucose (70-99) mg/dL POC Glucose (70-99) mg/dL Lactic Acid (0.4-2.0) mmol/L Calcium (8.5-10.1) mg/dL Magnesium (1.8-2.4) mg/dL Total Bilirubin (0.2-1.0) mg/dL AST (15-37) U/L ALT (16-63) U/L Alkaline Phosphatase (46-116) U/L CK-MB (CK-2) (0-3.6) ng/ml Troponin I (0.00-0.056) ng/mL C-Reactive Protein (<1.0) mg/dL NT-Pro-B Natriuret Pep (0-125) pg/mL Total Protein (6.4-8.2) g/dl Albumin (3.4-5.0) g/dl Globulin gm/dL Albumin/Globulin Ratio (1-2) Urine Color (Yellow) Urine Appearance (Clear) Urine pH (5.0-8.0) Ur Specific Alexander (1.005-1.030) Urine Protein (Negative) Urine Glucose (UA) (Negative) Urine Ketones (Negative) Urine Occult Blood (Negative) Urine Nitrite (Negative) Urine Bilirubin (Negative) Urine Urobilinogen (0.2-1.0) Ur Leukocyte Esterase (Negative) Urine RBC (0-5) /hpf Urine WBC (0-5) /hpf Ur Epithelial Cells (0-5) /hpf Urine Bacteria (FEW) /hpf Urine Mucus (FEW) /hpf SARS-CoV-2 RNA (ANGELA) (NEGATIVE) Med Orders - Current: Current Medications Acetaminophen (Acetaminophen 325 Mg Tab) 650 mg PO Q4H PRN PRN Reason: Pain (Mild 1-3)/fever Aspirin (Aspirin 325 Mg Tab.Ec) 325 mg PO DAILY [facility] Last Admin: 02/07/21 09:37 Dose: 325 mg Documented by: Benzonatate (Benzonatate 100 Mg Cap) 100 mg PO BID PRN PRN Reason: cough Last Admin: 02/06/21 16:42 Dose: 100 mg Documented by: Heparin Sodium (Porcine) (Heparin Sodium 5,000 Units/Ml Vial) 5,000 units SUBCUT Q8H TOMY Last Admin: 02/07/21 05:37 Dose: 5,000 units Documented by: Sodium Chloride (Normal Saline) 100 mls @ 60 mls/hr IV ASDIRECTED [facility] Last Admin: 02/06/21 12:41 Dose: 60 mls/hr Documented by: Lactated Ringer's (Ringers, Lactated) 1,000 mls @ 75 mls/hr IV ASDIRECTED [facility] Last Admin: 02/07/21 09:37 Dose: 75 mls/hr Documented by: Albumin Human 12.5 gm/ Premix 50 mls @ 50 mls/hr IV ONETIME ONE Stop: 02/07/21 10:11 Last Admin: 02/07/21 09:37 Dose: 50 mls/hr Documented by: Levalbuterol HCl (Levalbuterol Hcl 0.63 Mg/3 Ml Neb) 0.63 mg NEB Q4HRRT PRN PRN Reason: sob Last Admin: 02/06/21 20:06 Dose: 0.63 mg Documented by: Metoprolol Tartrate (Metoprolol Tartrate 5 Mg/5 Ml Sdv) 5 mg IVPUSH Q4H PRN PRN Reason: Tachycardia Last Admin: 02/06/21 21:37 Dose: 5 mg Documented by: Non-Formulary Medication (Fluticasone/Vilanterol) 1 puff INH DAILY [facility] Ondansetron HCl (Ondansetron 4 Mg Tab.Dis) 4 mg PO Q6H PRN PRN Reason: nausea, able to take PO Ondansetron HCl (Ondansetron 4 Mg/2 Ml Sdv) 4 mg IV Q4H PRN PRN Reason: Nausea/Vomiting Oxcarbazepine (Oxcarbazepine 150 Mg Tab) 150 mg PO TID [facility] Tiotropium [place] (Tiotropium [place] 4 Gm Inhalation [place] (2.5mcg/1 Dose; 10 Doses)) 0 gm INH DAILY@1999 TOMY Last Admin: 02/06/21 20:06 Dose: 2 inhalation Documented by: Discontinued Medications Albuterol/Ipratropium (Albuterol/Ipratropium 3.0-0.5 Mg/3 Ml Neb Soln) 3 ml NEB Q4H PRN PRN Reason: Shortness Of Breath/wheezing Calcium Gluconate (Calcium Gluconate 10% 1 Gm/10 Ml Sdv) 1 gm IV ONETIME ONE Stop: 02/06/21 22:46 Last Admin: 02/06/21 23:40 Dose: 1 gm Documented by: Diltiazem HCl (Diltiazem 50 Mg/10 Ml Sdv) 10 mg IVPUSH ONETIME ONE Stop: 02/06/21 13:36 Last Admin: 02/06/21 13:54 Dose: 10 mg Documented by: Furosemide (Furosemide 40 Mg/4 Ml Vial) 40 mg IVPUSH NOW ONE Stop: 02/06/21 13:35 Last Admin: 02/06/21 13:54 Dose: 40 mg Documented by: Dextrose/Sodium Chloride (Dextrose 5%-Normal Saline) 1,000 mls @ 999 mls/hr IV ASDIRECTED TOMY Last Admin: 02/06/21 10:39 Dose: 999 mls/hr Documented by: Albumin Human 12.5 gm/ Premix 50 mls @ 50 mls/hr IV Q1H ONE Stop: 02/06/21 16:19 Albumin Human 12.5 gm/ Premix 50 mls @ 50 mls/hr IV ONETIME ONE Stop: 02/06/21 17:29 Last Admin: 02/06/21 16:19 Dose: 50 mls/hr Documented by: Albumin Human 12.5 gm/ Premix 50 mls @ 50 mls/hr IV ONETIME ONE Stop: 02/06/21 17:29 Last Admin: 02/06/21 17:13 Dose: 50 mls/hr Documented by: Furosemide 100 mg/ Sodium (Chloride) 100 mls @ 2.5 mls/hr IV TITRATE TOMY; Protocol Furosemide 100 mg/ Sodium (Chloride) 100 mls @ 5 mls/hr IV TITRATE TOMY; Protocol Albumin Human (Flexbumin 25%) 12.5 gm in 50 mls @ 100 mls/hr IV ONETIME ONE Stop: 02/06/21 23:11 Last Admin: 02/06/21 22:55 Dose: 100 mls/hr Documented by: Lactated Ringer's (Ringers, Lactated) 250 mls @ 250 mls/hr IV ONETIME ONE Stop: 02/07/21 00:30 Last Admin: 02/06/21 23:43 Dose: 250 mls/hr Documented by: Albumin Human (Flexbumin 25%) 12.5 gm in 50 mls @ 100 mls/hr IV ONETIME ONE Stop: 02/07/21 03:06 Last Admin: 02/07/21 02:45 Dose: 100 mls/hr Documented by: Lactated Ringer's (Ringers, Lactated) 250 mls @ 250 mls/hr IV ASDIRECTED [facility] Last Admin: 02/07/21 02:45 Dose: 250 mls/hr Documented by: Levofloxacin/Dextrose 500 mg/ (Premix) 100 mls @ 100 mls/hr IV ONETIME ONE Stop: 02/07/21 08:00 Last Admin: 02/07/21 07:38 Dose: 100 mls/hr Documented by: Iopamidol (Iopamidol 755 Mg/Ml 100 Ml Bottle) 100 ml IVPUSH ONETIME ONE Stop: 02/06/21 12:25 Last Admin: 02/06/21 12:41 Dose: 100 ml Documented by: Levalbuterol HCl (Levalbuterol Hcl 1.25 Mg/0.5 Ml Neb) 1.25 mg NEB ONETIME ONE Stop: 02/06/21 10:16 Last Admin: 02/06/21 10:25 Dose: Not Given Documented by: Levalbuterol HCl (Levalbuterol Hcl 1.25 Mg/3 Ml Neb) Confirm Administered Dose 1.25 mg .ROUTE .STK-MED ONE Stop: 02/06/21 10:18 Last Admin: 02/06/21 10:24 Dose: 1.25 mg Documented by: Levalbuterol HCl (Levalbuterol Hcl 0.63 Mg/3 Ml Neb) Confirm Administered Dose 0.63 mg .ROUTE .STK-MED ONE Stop: 02/06/21 16:15 Last Admin: 02/06/21 16:26 Dose: Not Given Documented by: Lorazepam (Lorazepam 2 Mg/Ml Sdv) 0.5 mg IVPUSH ONETIME ONE Stop: 02/06/21 22:42 Last Admin: 02/06/21 22:55 Dose: 0.5 mg Documented by: Methylprednisolone Sodium Succinate (Methylprednisolone Sodium Succinate 125 Mg/2 Ml Sdv) 125 mg IVPUSH ONETIME ONE Stop: 02/06/21 22:43 Last Admin: 02/06/21 22:55 Dose: 125 mg Documented by: Metoprolol Tartrate (Metoprolol Tartrate 5 Mg/5 Ml Sdv) 5 mg IVPUSH ONETIME ONE Stop: 02/06/21 14:35 Last Admin: 02/06/21 14:43 Dose: 5 mg Documented by: Metoprolol Tartrate (Metoprolol Tartrate 25 Mg Tab) 12.5 mg PO ONETIME ONE Stop: 02/06/21 16:31 Last Admin: 02/06/21 16:42 Dose: 12.5 mg Documented by: Metoprolol Tartrate (Metoprolol Tartrate 25 Mg Tab) 25 mg PO ONETIME ONE Stop: 02/06/21 17:35 Last Admin: 02/06/21 17:57 Dose: 25 mg Documented by: Metoprolol Tartrate (Metoprolol Tartrate 25 Mg Tab) 25 mg PO ONETIME ONE Stop: 02/06/21 22:43 Last Admin: 02/06/21 22:56 Dose: 25 mg Documented by: Prednisone (Prednisone 20 Mg Tab) 40 mg PO ONETIME ONE Stop: 02/06/21 16:30 Last Admin: 02/06/21 16:42 Dose: 40 mg Documented by: Sodium Chloride (Sodium Chloride 0.9% 10 Ml Syringe) 10 ml FLUSH ONETIME ONE Stop: 02/06/21 12:25 Last Admin: 02/06/21 12:41 Dose: 10 ml Documented by: Tiotropium [place] (Tiotropium [place] 4 Gm Inhalation [place] (2.5mcg/1 Dose; 10 Doses)) 0 gm INH DAILY TOMY - Exam General: Reports: Alert, Oriented HEENT: Reports: EOMI Neck: Reports: Supple Lungs: Reports: Decreased Breath Sounds, Crackles Cardiovascular: Reports: Tachycardia GI/Abdominal Exam: Soft, Non-Tender, No Distention Back Exam: Reports: Normal Inspection Extremities: Normal Inspection, No Pedal Edema Skin: Reports: Warm, Dry, Intact Neurological: Reports: No New Focal Deficit Psy/Mental Status: Reports: Alert, Normal Affect *Q Meaningful Use (DIS) - VTE *Q VTE Criteria *Q: 2
--- NOTE | 2021-02-07 10:04 | CR ---
Chest: Portable view of the chest was obtained. Comparison: No previous chest x-ray is available. Right-sided pleural effusion is seen. Other parenchymal density is seen within the right lung base which felt to represent additional pleural effusion. Lungs otherwise are clear. Heart size is slightly enlarged. Upper mediastinum is normal. No acute osseous abnormality is appreciated. Osteopenia is noted. Impression: 1. Right-sided pleural effusion and slight cardiomegaly. 2. Nothing acute is otherwise seen. Diagnostic code #3
[2021-02-07] MEDS ORDERED: OXcarbazepine 150 MG Tab PO SCH (15:00)
[2021-02-07] MEDS ORDERED: Formoterol/Mometasone 200-5 MCG 8.8 GM Inhaler IH SCH (21:00)
== END 2021-02-07 13:45 | DRG 291 ==
LOC: JD.ED 09:48 → JD.ICU 14:35
PROVIDERS: ADMIT Hospitalist; ATTEND Hospitalist
DX: I13.0 Hypertensive heart and chronic kidney disease with heart failure and stage 1 through stage 4 chronic kidney disease, or unspecified chronic kidney disease (principal); J96.21 Acute and chronic respiratory failure with hypoxia; J44.1 Chronic obstructive pulmonary disease with (acute) exacerbation; I24.8 Other forms of acute ischemic heart disease; J90 Pleural effusion, not elsewhere classified; E46 Unspecified protein-calorie malnutrition; I25.10 Atherosclerotic heart disease of native coronary artery without angina pectoris; D69.6 Thrombocytopenia, unspecified; E87.5 Hyperkalemia; R06.02 Shortness of breath; N18.30 Chronic kidney disease, stage 3 unspecified; J43.1 Panlobular emphysema; Z68.23 Body mass index [BMI] 23.0-23.9, adult; Z66 Do not resuscitate; R09.02 Hypoxemia; Z98.890 Other specified postprocedural states; I47.1 Supraventricular tachycardia; R62.7 Adult failure to thrive; R77.8 Other specified abnormalities of plasma proteins; I50.9 Heart failure, unspecified; I11.0 Hypertensive heart disease with heart failure; N40.0 Benign prostatic hyperplasia without lower urinary tract symptoms; M19.90 Unspecified osteoarthritis, unspecified site; Z20.822 Contact with and (suspected) exposure to COVID-19
CPT/HCPCS: 36415; 71045; 71275; 80053; 82553; 83735; 83880; 84145; 84484; 85025; 85379; 85610; 85652; 85730; 86140; 93005 ×2; 93971; 94640; 96374; 96375; 99285; J1940; J3490; J7042; J7612; Q9967; U0002; 36600; 80048; 81001; 82803; 82947; 83605; 93010; 94660; 99222; 99239; A9270-GY; J0610; J1644; J1956; J2060; J2930; J7120; J7512; P9047